=== PATIENT | male | born 1980 | race Caucasian/White ===

== ENCOUNTER 2016-09-07 16:21 | Emergency (ER) | payer OTHER ==
[2016-09-07 17:10] LABS: Hematocrit 44.7 % (42.0-52.0); Hemoglobin 14.9 gm/dL (13.5-18.0); Mean Cell Volume 88.9 fl (78-100); Mean Corpuscular Hemoglobin 29.6 pg (27-31); Mean Corpuscular Hgb Conc 33.3 g/dl (32-36); Neutrophil # 6.1 K/mm3 (1.3-6.0); Neutrophil % 65.2 % (42-75.0); Platelet Count 363 K/mm3 (150-450); Red Blood Count 5.03 M/mm3 (4.7-6.0); Red Cell Distribution Width 13.6 % (11.5-14.0); White Blood Count 9.3 K/mm3 (4.0-10.5)
[2016-09-07 17:29] LABS: ALT 40 U/L (19-67); AST 25 U/L (0-48); Albumin * 3.9 gm/dl (3.4-5.0); Alkaline Phosphatase * 120 U/L (50-170); Anion Gap 14.8 mmol/L (6.8-13.8); BUN/Creatinine Ratio 9.3 (9.0-21.6); Bilirubin, Total 0.3 mg/dL (0.0-1.1); Blood Urea Nitrogen 10 mg/dL (6-23); Ca. Corrected For Albumin 9.3 mg/dL (8.4-10.2); Calcium * 9.5 mg/dL (7.9-10.9); Carbon Dioxide 26.2 mmol/L (24-32.6); Chloride 106 mmol/L (97-106); Glucose * 96 mg/dL (70-110); Sodium 143 mmol/L (132-142); TSH * 0.207 uIU/mL (0.358-3.74); Total Protein 7.8 gm/dL (6.2-8.2)
--- NOTE | 2016-09-07 17:52 | ERNOTE ---
<Joey Craigen - Last Filed: 09/07/16 20:00> Psychological HPI - Date Date of Service: 09/07/16 - General Chief Complaint: Psychiatric Problem Source: patient Exam Limitations: no limitations - Immun/Allergies/Home Medications Allergies/Adverse Reactions: Allergies codeine Allergy (Mild, Verified 09/07/16 16:50) Swelling of Throat trazodone Adverse Reaction (Mild, Verified 09/07/16 16:50) RESTLESS LEG SYNDROME Home Medications: HOME MEDICATIONS Levothyroxine Sodium [Tirosint] 88 mcg PO DAILY 02/23/16 [Last Taken Unknown] LORazepam [Ativan] 0.5 mg PO BID PRN 03/30/16 [Last Taken Unknown] Venlafaxine HCl [Effexor] 75 mg PO DAILY 03/30/16 [Last Taken Unknown] - History of Present Illness Time Seen by Provider: 09/07/16 17:10 Arrived by: police Onset/duration: constant Mechanism: other - substance abuse Situational Problems: other - life in general Associated Symptoms: frustrated Review of Systems - Review of Systems Constitutional: Present: See HPI EYE: Present: no symptoms reported ENT: Present: no symptoms reported Respiratory: Present: no symptoms reported Cardiology: Present: no symptoms reported Gastrointestinal/Abdominal: Present: no symptoms reported Genitourinary: Present: no symptoms reported Musculoskeletal: Present: no symptoms reported Skin: Present: no symptoms reported Neurological: Present: no symptoms reported Endocrine: Present: no symptoms reported Hematologic/Lymphatic: Present: no symptoms reported Psych: Present: emotional problems - Patient's Past Medical History Patient History - Medical: ADHD, Anxiety, Depression, GERD, Hypothyroidism Patient History - Cardiac/Respiratory: No pertinent hx Patient History - Cancer: No Hx of Cancer Patient History - Surgical Procedures: Other - Social History Living Situations: home Smoking Status: Current every day smoker Alcohol Use: other Drug Use: none Physical Exam - Physical Exam General Appearance: Present: wd/wn, alert, no apparent distress Eye Exam: Normal inspection: bilateral, PERRL: bilateral Ears, Nose, Throat: Present: normal ENT inspection, hearing grossly normal, normal pharynx Neck: Present: normal inspection, nontender Respiratory: Present: no respiratory distress, normal breath sounds, no accessory muscle use, chest nontender, lungs clear Cardiovascular/Chest: Present: regular rate, rhythm, no murmur, normal peripheral pulses Gastrointestinal/Abdominal: Present: normal bowel sounds, nontender, nondistended, soft, no organomegaly Rectal Exam: Present: deferred Back Exam: Present: normal inspection, normal range of motion Extremity Exam: Present: normal inspection, non-tender, no edema, normal range of motion Neurological Exam: Present: alert, oriented, other - Pt is agitated, as he does not think he has a problem and does not want to be here. Skin Exam: Present: normal color, warm/dry Lymphatic Exam: Present: no adenopathy ED Progress - Results and Orders Patient's Lab Results:: I have reviewed the patient's lab results. - Vital Signs Patient's Vital Signs:: I have reviewed the patient's vital signs. Vital Signs: Vital Signs 09/07/16 16:48 Temperature 35.9 C L Pulse Rate 111 H Respiratory 14 Rate Blood Pressure 133/83 O2 Sat by Pulse 95 Oximetry - Progress/Reassessment Chief Complaint: Psychiatric Problem Progress:: Unchanged Progress Note-Subjective: 09/07/16 19:15 I have read the document that the presented to the court and the patient would likely benefit from being admitted for a period of time. He will need to be evaluated by a psychiatrist and he needs time to get the meds out of his system. - Transfer of Care Physician Sign Out: Ander Craig Receiving Physician: Salinas Reed Plan - Plan Plan: Attempts are underway to find a facility for placement. Departure Clinical Impression: Substance abuse, Outbursts of anger - Departure <Salinas Reed - Last Filed: 09/08/16 07:20> ED Progress - Vital Signs Vital Signs: Vital Signs 09/08/16 07:02 Temperature 35.6 C L Pulse Rate 96 Respiratory 12 Rate Blood Pressure 143/92 O2 Sat by Pulse 98 Oximetry - Progress/Reassessment Progress Note-Subjective: 09/08/16 07:08 Checked on patient periodically throughout the night and he was sleeping comfortably. Awoke around 07:00 and was alert and oriented. I notified him that we were trying to find him placement. Pt asked for more medication for his anxiety. - Transfer of Care Physician Sign Out: Salinas Reed Receiving Physician: Ander Craig
[2016-09-07 17:55] LABS: Urine Bilirubin Negative (NEGATIVE); Urine Blood Negative /ul (NEGATIVE); Urine Ketone Negative (NEGATIVE); Urine Nitrite Negative (NEGATIVE); Urine Protein Negative (NEGATIVE); Urine Specific Gravity 1.015 SP.GR. (1.005-1.030); Urine Urobilinogen Normal (NORMAL)
[2016-09-07 18:08] LABS: Urine Appearance Clear; Urine Bacteria None Seen; Urine Color Yellow; Urine RBC None Seen /hpf (0-5); Urine WBC None Seen /hpf (0-5)
[2016-09-07 18:16] LABS: Cocaine Ur Negative (NEGATIVE); Urine Barbiturate Negative (NEGATIVE); Urine Opiates Negative (NEGATIVE); Urine PCP Negative (NEGATIVE); Urine THC Negative (NEGATIVE)
[2016-09-07 18:18] LABS: Urine Benzodiazepines Positive (NEGATIVE)
[2016-09-07] MEDS ORDERED: hydrOXYzine PAMOATE 25 MG CAPSULE PO ONE (18:36)
[2016-09-07] MEDS ORDERED: hydrOXYzine PAMOATE 25 MG CAPSULE ONE (18:39)
[2016-09-08] MEDS ORDERED: hydrOXYzine PAMOATE 25 MG CAPSULE PO ONE ×3 (07:14→17:10)
[2016-09-08] MEDS ORDERED: hydrOXYzine PAMOATE 25 MG CAPSULE ONE ×3 (07:17→17:12)
[2016-09-08 12:04] VITALS: BP 145/97
[2016-09-08] MEDS ORDERED: NICOTINE 21 MG PATC TD SCH (14:00)
[2016-09-08] MEDS ORDERED: NICOTINE 21 MG PATC TD ONE (14:15)
[2016-09-08] MEDS ORDERED: VENLAFAXINE HCL 75 MG TABLET PO ONE ×2 (14:30→16:00)
[2016-09-08] MEDS ORDERED: LEVOTHYROXINE SODIUM 88 MCG TABLET PO ONE (14:30)
[2016-09-08] MEDS ORDERED: PANTOPRAZOLE SODIUM 20 MG TABLET.DR PO ONE (15:42)
[2016-09-08] MEDS ORDERED: PANTOPRAZOLE SODIUM 20 MG TABLET.DR ONE (15:44)
[2016-09-08] MEDS ORDERED: HYDROXYZINE HCL 25 MG PO SCH (17:00)
[2016-09-08] MEDS ORDERED: diphenhydrAMINE HCL 50 MG CAPSULE PO ONE ×2 (19:34→21:20)
[2016-09-08] MEDS ORDERED: VENLAFAXINE 150 MG PO SCH (21:00)
[2016-09-08] MEDS ORDERED: VENLAFAXINE HCL 37.5 MG CAP.SR.24H PO SCH (21:15)
[2016-09-08] MEDS ORDERED: ACETAMINOPHEN 500 MG TABLET PO ONE (23:04)
[2016-09-09] MEDS ORDERED: LEVOTHYROXINE SODIUM 88 MCG TABLET PO SCH (07:00)
[2016-09-09] MEDS ORDERED: ACETAMINOPHEN 500 MG TABLET PO ONE (07:03)
[2016-09-09] MEDS: hydrOXYzine HCL 25 MG TABLET PO SCH ×2 (08:27→08:28)
[2016-09-09] MEDS ORDERED: ADDERALL 30 MG PO SCH (09:00)
[2016-09-09] MEDS ORDERED: VENLAFAXINE HCL 75 MG TABLET PO SCH (09:00)
[2016-09-09] MEDS ORDERED: IBUPROFEN 400 MG TABLET ONE (09:31)
[2016-09-09] MEDS ORDERED: IBUPROFEN 400 MG TABLET PO ONE (09:31)
== END 2016-09-09 10:00 | disposition home or self-care (01) ==
LOC: ER 16:21
DX: F19.10 Other psychoactive substance abuse, uncomplicated (principal); R45.4 Irritability and anger; F17.210 Nicotine dependence, cigarettes, uncomplicated; F41.1 Generalized anxiety disorder; E03.9 Hypothyroidism, unspecified; F90.9 Attention-deficit hyperactivity disorder, unspecified type
CPT/HCPCS: 36415; 80053; 81001; 83735; 84443; 85025; 99283; G0479; G0480; G0481

== ENCOUNTER 2016-09-21 06:03 | Emergency (ER) | payer OTHER ==
[2016-09-21] MEDS ORDERED: diphenhydrAMINE HCL 50 MG/ML VIAL IV ONE (06:34)
--- NOTE | 2016-09-21 06:43 | ERNOTE ---
<Salinas Reed - Last Filed: 09/21/16 07:05> Medical Problem HPI - General Chief Complaint: General Assessment Time Seen by Provider: 09/21/16 06:23 Source: patient Exam Limitations: no limitations - Immun/Allergies/Home Medications Immunizations: IMMUNIZATION HX Immunizations Up to Date Yes History of Influenza Vaccine Yes Hx Pneumococcal Vaccination No Allergies/Adverse Reactions: Allergies codeine Allergy (Mild, Verified 09/21/16 06:09) Swelling of Throat trazodone Adverse Reaction (Mild, Verified 09/21/16 06:09) RESTLESS LEG SYNDROME Home Medications: HOME MEDICATIONS Levothyroxine Sodium [Tirosint] 88 mcg PO DAILY 02/23/16 [Last Taken Unknown] LORazepam [Ativan] 0.5 mg PO TID PRN 03/30/16 [Last Taken Unknown] Venlafaxine HCl [Effexor] 150 mg PO BID 03/30/16 [Last Taken Unknown] Dextroamphetamine/Amphetamine [Adderall 30 mg Tablet] 30 mg PO DAILY 09/08/16 [ Last Taken Unknown] Hydroxyzine HCl 25 mg PO TID 09/08/16 [Last Taken Unknown] - History of Present History Narrative: Pt called the ED late last night stating that he was having trouble with involuntary tongue movement. He was given the option to come in and be seen but he states it got some better for a while so he did not. This morning he states it is worsening again. Timing: getting worse Severity: moderate Review of Systems - Review of Systems Constitutional: Absent: recent illness EYE: Absent: vision changes ENT: Present: See HPI. Absent: throat swelling Respiratory: Absent: shortness of breath Cardiology: Present: palpitations. Absent: chest pain Gastrointestinal/Abdominal: Present: no symptoms reported Genitourinary: Present: no symptoms reported Musculoskeletal: Present: muscle pain - left shoulder Skin: Present: no symptoms reported Neurological: Present: other - "pinched nerve in his left arm" Endocrine: Present: increased thirst Hematologic/Lymphatic: Present: no symptoms reported Psych: Present: anxiety - Patient's Past Medical History Patient History - Medical: ADHD, Anxiety, Depression, GERD, Hypothyroidism Patient History - Cardiac/Respiratory: No pertinent hx Patient History - Cancer: No Hx of Cancer Patient History - Surgical Procedures: Other - Social History Living Situations: home Smoking Status: Current every day smoker Have you smoked in the past 12 months: Yes Alcohol Use: other Drug Use: none Physical Exam - Physical Exam General Appearance: Present: wd/wn, alert, moderate distress, anxious, irritable Neck: Present: normal inspection, nontender Respiratory: Present: no respiratory distress - although somewhat tachypnec Cardiovascular/Chest: Present: tachycardia Neurological Exam: Present: alert, other - hyperactive. Muscles twitching Skin Exam: Present: normal color, warm/dry ED Progress - Vital Signs Vital Signs: Vital Signs 09/21/16 06:05 Temperature 35.9 C L Pulse Rate 133 H Respiratory 18 Rate Blood Pressure 141/104 O2 Sat by Pulse 99 Oximetry - Progress/Reassessment Chief Complaint: General Assessment - Transfer of Care Physician Sign Out: Salinas Reed Receiving Physician: Ander Tirado Pending Results: Labs Expected Disposition: Discharge Departure - Departure Clinical Impression: Adverse drug reaction Disposition: [facility] Condition: Fair <Ander Tirado - Last Filed: 09/21/16 09:05> Medical Problem HPI - Immun/Allergies/Home Medications Immunizations: IMMUNIZATION HX Immunizations Up to Date Yes History of Influenza Vaccine Yes Hx Pneumococcal Vaccination No ED Progress - Vital Signs Vital Signs: Vital Signs 09/21/16 09/21/16 06:05 07:45 Temperature 35.9 C L Pulse Rate 133 H 131 H Respiratory 18 22 H Rate Blood Pressure 141/104 145/96 O2 Sat by Pulse 99 95 Oximetry Plan - Plan Plan: Patient seen. Labs ordered by Dr Reed reviewed. I added additional labs. Etiology of Sx unclear. Elevated lactic acid, elevated WBC. Possible early sepsis, vs serotonin syndrome vs other. I discussed the case with Dr Kwadwo Houser who will admit the patient. Sepsis fluids and IV Abx given. Strep, CXR and Influenxa added on. Admit for further evaluation and management. Sepsis fluids given. Departure - Critical Care Total Time (mins): 0
[2016-09-21] MEDS ORDERED: diphenhydrAMINE HCL 50 MG/ML VIAL ONE (06:44)
[2016-09-21 06:46] LABS: Hematocrit 43.9 % (42.0-52.0); Hemoglobin 15.2 gm/dL (13.5-18.0); Mean Cell Volume 86.1 fl (78-100); Mean Corpuscular Hemoglobin 29.8 pg (27-31); Mean Corpuscular Hgb Conc 34.6 g/dl (32-36); Mean Platelet Volume 9.9 fl (6.0-9.5); Platelet Count 424 K/mm3 (150-450); Red Cell Distribution Width 12.8 % (11.5-14.0); White Blood Count 22.2 K/mm3 (4.0-10.5)
[2016-09-21 06:54] LABS: Total Cells Counted 100
[2016-09-21 07:13] LABS: Atypical (Reactive) Lymph 1 % (0-2); Band 3 % (0-2.0); Basophil 1 % (0-1); Dohle Bodies 1+; Lymphocyte 19 % (20-51); Monocyte 3 % (0-9); Neutrophil 73 % (42-75); Neutrophil # 16.2 K/mm3 (1.3-6.0); Platelet Estimate Normal (NORMAL); Toxic Granulation Trace
[2016-09-21 07:35] LABS: Albumin * 4.7 gm/dl (3.4-5.0); Anion Gap 24.3 mmol/L (6.8-13.8); BUN/Creatinine Ratio 7.8 (9.0-21.6); Bilirubin, Total 1.3 mg/dL (0.0-1.1); Ca. Corrected For Albumin 8.8 mg/dL (8.4-10.2); Calcium * 9.7 mg/dL (7.9-10.9); Carbon Dioxide 18.2 mmol/L (24-32.6); Potassium 3.5 mmol/L (3.4-4.6); Total Protein 8.8 gm/dL (6.2-8.2)
[2016-09-21 07:36] LABS: Magnesium 1.6 mg/dL (1.2-2.8)
[2016-09-21 07:41] LABS: Urine Bilirubin Negative (NEGATIVE); Urine Blood Negative /ul (NEGATIVE); Urine Ketone 5 mg/dL (NEGATIVE); Urine Nitrite Negative (NEGATIVE); Urine Protein 30 mg/dL (NEGATIVE); Urine Urobilinogen Normal (NORMAL)
[2016-09-21 07:45] LABS: CK Total * 156 U/L (0-259); T4 Free * 1.38 ng/dL (0.76-1.46)
[2016-09-21] MEDS ORDERED: LORazepam 2 MG/ML DISP.SYRIN IV ONE ×2 (07:49→09:09)
[2016-09-21] MEDS ORDERED: NORMAL SALINE 1,000 ML IV PRN ×2 (07:50→10:30)
[2016-09-21 07:54] LABS: Urine Appearance Clear; Urine Bacteria TRACE; Urine Color Dark Yellow; Urine Hyaline Cast >25 /LPF; Urine Mucus Few - 1+; Urine RBC TRACE /hpf (0-5); Urine WBC 0-5 /hpf (0-5)
[2016-09-21 07:55] LABS: Cocaine Ur Negative (NEGATIVE); Urine Barbiturate Negative (NEGATIVE); Urine Benzodiazepines Negative (NEGATIVE); Urine Opiates Negative (NEGATIVE); Urine PCP Negative (NEGATIVE); Urine THC Negative (NEGATIVE)
[2016-09-21] MEDS ORDERED: NORMAL SALINE 1,000 ML IV SCH (08:30)
[2016-09-21] MEDS ORDERED: LEVOFLOXACIN/D5W 750 MG in Premix Bag 1 BAG IV ONE (08:30)
[2016-09-21 08:52] VITALS: BP 148/73
[2016-09-21] MEDS ORDERED: LORazepam 2 MG/ML DISP.SYRIN ONE (09:10)
[2016-09-21] MEDS ORDERED: LORazepam 0.5 MG TABLET PO SCH (09:21)
[2016-09-21] MEDS ORDERED: NORMAL SALINE 1,000 ML IV ONE (09:25)
[2016-09-21] MEDS ORDERED: ACETAMINOPHEN 325 MG TABLET PO PRN (09:27)
[2016-09-21] MEDS ORDERED: hydrOXYzine HCL 25 MG TABLET PO SCH (09:30)
[2016-09-21] MEDS ORDERED: LEVOTHYROXINE SODIUM 88 MCG TABLET PO SCH (10:00)
[2016-09-22] MEDS ORDERED: LEVOFLOXACIN/D5W 750 MG/150 ML BAG IV SCH (09:00)
[2016-09-23 04:17] LABS: 18KD (IGG) Band NON-REACTIVE; 23KD (IGG) Band NON-REACTIVE; 28KD (IgG) Band NON-REACTIVE; 30KD (IgG) Band NON-REACTIVE; 39KD (IgG) Band NON-REACTIVE; 39KD (IgM) Band NON-REACTIVE; 41KD (IgG) Band NON-REACTIVE; 45KD (IgG) Band NON-REACTIVE; 58KD (IgG) Band NON-REACTIVE; 66KD (IgG) Band NON-REACTIVE; 93KD (IgG) Band NON-REACTIVE; B burgdorferi IgM WB NEGATIVE (NEGATIVE); B.burgdorferi Ab (IgG) WB NEGATIVE (NEGATIVE)
[2016-09-23 06:17] LABS: 41KD (IgM) Band NON-REACTIVE
== END 2016-09-21 09:31 | disposition left against medical advice (07) ==
LOC: ER 06:03 → SCU 08:41 → UNDOADMOB 08:41 → ER 09:31
DX: T88.7XXA Unspecified adverse effect of drug or medicament, initial encounter (principal); D72.829 Elevated white blood cell count, unspecified; R74.0 Nonspecific elevation of levels of transaminase and lactic acid dehydrogenase [LDH]; F17.210 Nicotine dependence, cigarettes, uncomplicated; Z53.29 Procedure and treatment not carried out because of patient's decision for other reasons; E03.9 Hypothyroidism, unspecified
CPT/HCPCS: 36415; 71020; 80053; 81001; 82550; 83605; 83735; 84145; 84439; 84443; 85007; 85025; 86617; 87040; 87081; 87400; 87430; 96365; 96366; 96375; 99284; G0479; G0480; G0481

== ENCOUNTER 2016-09-21 13:59 | Inpatient (IN) | payer OTHER ==
[2016-09-21] MEDS ORDERED: diphenhydrAMINE HCL 50 MG/ML VIAL IV ONE (14:17)
[2016-09-21] MEDS ORDERED: diphenhydrAMINE HCL 50 MG/ML VIAL ONE (14:25)
[2016-09-21] MEDS ORDERED: LORazepam 2 MG/ML DISP.SYRIN ONE ×3 (14:30→17:01)
[2016-09-21] MEDS ORDERED: NORMAL SALINE 1,000 ML IV ONE (14:31)
[2016-09-21] MEDS ORDERED: LORazepam 2 MG/ML DISP.SYRIN IV ONE ×3 (14:31→16:53)
[2016-09-21 15:09] LABS: Hematocrit 37.7 % (42.0-52.0); Hemoglobin 12.8 gm/dL (13.5-18.0); Mean Cell Volume 87.3 fl (78-100); Mean Corpuscular Hemoglobin 29.6 pg (27-31); Mean Platelet Volume 10.1 fl (6.0-9.5); Platelet Count 346 K/mm3 (150-450); Red Blood Count 4.32 M/mm3 (4.7-6.0); White Blood Count 15.2 K/mm3 (4.0-10.5)
[2016-09-21 15:12] LABS: ALT 31 U/L (19-67); AST 15 U/L (0-48); Alkaline Phosphatase * 139 U/L (50-170); Anion Gap 14.7 mmol/L (6.8-13.8); BUN/Creatinine Ratio 8.1 (9.0-21.6); Bilirubin, Total 0.7 mg/dL (0.0-1.1); Blood Urea Nitrogen 10 mg/dL (6-23); Ca. Corrected For Albumin 9.2 mg/dL (8.4-10.2); Calcium * 9.5 mg/dL (7.9-10.9); Carbon Dioxide 24.4 mmol/L (24-32.6); Chloride 104 mmol/L (97-106); Glucose * 100 mg/dL (70-110); Lipase 53 U/L (73-393); Potassium 4.1 mmol/L (3.4-4.6); Salicylate 3.2 mg/dL (2.8-20.0); Sodium 139 mmol/L (132-142); Total Protein 7.7 gm/dL (6.2-8.2)
[2016-09-21 15:15] LABS: Total Cells Counted 100
[2016-09-21 15:40] LABS: Eosinophil 1 % (0-3); Immature Granulocyte 2 (0-1); Lymphocyte 17 % (20-51); Monocyte 11 % (0-9); Neutrophil 69 % (42-75); Neutrophil # 10.5 K/mm3 (1.3-6.0); Platelet Estimate Normal (NORMAL)
[2016-09-21] MEDS ORDERED: LEVOFLOXACIN/D5W 750 MG in Premix Bag 1 BAG IV ONE (15:45)
--- NOTE | 2016-09-21 15:56 | ERNOTE ---
Medical Problem HPI - General Chief Complaint: General Assessment Time Seen by Provider: 09/21/16 14:25 Source: family Exam Limitations: clinical condition - Immun/Allergies/Home Medications Immunizations: IMMUNIZATION HX Immunizations Up to Date Yes History of Influenza Vaccine Yes Hx Pneumococcal Vaccination No Allergies/Adverse Reactions: Allergies codeine Allergy (Mild, Verified 09/21/16 06:09) Swelling of Throat trazodone Adverse Reaction (Mild, Verified 09/21/16 06:09) RESTLESS LEG SYNDROME Home Medications: HOME MEDICATIONS Levothyroxine Sodium [Tirosint] 88 mcg PO DAILY 02/23/16 [Last Taken Unknown] LORazepam [Ativan] 0.5 mg PO TID PRN 03/30/16 [Last Taken Unknown] Venlafaxine HCl [Effexor] 150 mg PO BID 03/30/16 [Last Taken Unknown] Dextroamphetamine/Amphetamine [Adderall 30 mg Tablet] 30 mg PO DAILY 09/08/16 [ Last Taken Unknown] Hydroxyzine HCl 25 mg PO TID 09/08/16 [Last Taken Unknown] - History of Present History Narrative: Patient was here earlier with dystonic-type reaction and found to have elevated lactic acid and leukocytosis. He left AMA undestanding risks of and or disability against my advice. Return by ambulance with other family. Earlier he and family denied heavy alcohol intake, no SI or HI. Family with him now say he has been drinking heavily up iuntil 2 weeks ago which make withdrawal very possible. No fever. He is picking at things and confused. He cannot provide any Hx. no clear OD attempt. Earlier was not suicidal or homicidal. History otherwise unobtainable. Timing: getting worse Modifying Factors - (Improves): Present: other - unable Modifying Factors - (Worsens): Present: other - unable Review of Systems - Narrative Narrative: unable to obtain ROS d/t patient confusion - Review of Systems All Other Systems: All systems neg except as marked - Patient's Past Medical History Patient History - Medical: ADHD, Anxiety, Depression, GERD, Hypothyroidism Patient History - Cardiac/Respiratory: No pertinent hx Patient History - Cancer: No Hx of Cancer Patient History - Surgical Procedures: Other - Social History Living Situations: home Smoking Status: Current every day smoker Alcohol Use: other Drug Use: none Physical Exam - Physical Exam General Appearance: Present: other - Confused, picking at things, jerky, no Sz activity. Eye Exam: PERRL: bilateral Ears, Nose, Throat: Present: normal ENT inspection, other - no mass seen posterior oropharynx. Neck: Present: other - supple, no meningeal signs noted. Respiratory: Present: no respiratory distress, normal breath sounds Cardiovascular/Chest: Present: tachycardia, other - regular Gastrointestinal/Abdominal: Present: normal bowel sounds, nontender, nondistended, other - difficult exam, no rigidity Back Exam: Present: normal inspection Extremity Exam: Present: other - no gross deformity Neurological Exam: Present: other - confused. Picking at things. No acute focal motor deficits. No clear acute CN deficits. Skin Exam: Absent: skin rash ED Progress - Results and Orders Patient's Lab Results:: I have reviewed the patient's lab results. - Vital Signs Patient's Vital Signs:: I have reviewed the patient's vital signs. Vital Signs: Vital Signs 09/21/16 09/21/16 09/21/16 08:51 14:06 14:10 Temperature 37 C Pulse Rate 134 H 126 H Respiratory 22 H 22 H Rate Blood Pressure 148/73 146/77 146/77 O2 Sat by Pulse 97 97 Oximetry - EKG EKG: other - Sinus tach, rate 123, Non-specif ST/T wave changes, no evidence of STEMI - CT/Ultrasound CT/Ultrasound Narrative: CT head negative for acute. - Progress/Reassessment Chief Complaint: General Assessment Progress:: Improved Progress Note-Subjective: 09/21/16 15:54 Improved with Ativan. Still with confusion and picking but less agitation. Airway intact. D/W Dr Oneal, will admit SCU. Immediate transfer to [facility]. Possible alcohol withdrawal vs other, inpatient management indicated. 09/21/16 15:56 - Transfer of Care Expected Disposition: Admit Departure - Departure Clinical Impression: Mental status change Disposition: [facility] Condition: Undetermined - Critical Care Total Time (mins): 0
[2016-09-21 16:04] LABS: Urine Bilirubin Negative (NEGATIVE); Urine Blood Negative /ul (NEGATIVE); Urine Ketone Negative (NEGATIVE); Urine Nitrite Negative (NEGATIVE); Urine Protein Negative (NEGATIVE); Urine Urobilinogen Normal (NORMAL)
[2016-09-21 16:11] LABS: Urine Appearance Clear; Urine Bacteria None Seen; Urine Color Yellow; Urine RBC None Seen /hpf (0-5); Urine WBC None Seen /hpf (0-5)
[2016-09-21 16:20] LABS: Cocaine Ur Negative (NEGATIVE); Urine Barbiturate Negative (NEGATIVE); Urine Benzodiazepines Negative (NEGATIVE); Urine Opiates Negative (NEGATIVE); Urine PCP Negative (NEGATIVE); Urine THC Negative (NEGATIVE)
[2016-09-21] MEDS ORDERED: POTASSIUM CHLORIDE 40 MEQ in NORMAL SALINE 1,000 ML IV PRN (16:43)
[2016-09-21] MEDS ORDERED: THIAMINE HCL 100 MG/ML VIAL IV STA ×2 (16:45→17:00)
[2016-09-21] MEDS ORDERED: LORazepam 2 MG/ML DISP.SYRIN IV PRN (16:45)
[2016-09-21] MEDS ORDERED: MULTIVIT INFUSN,ADULT 4,VIT K 10 ML, THIAMINE HCL 100 MG in NORMAL SALINE 1,000 ML IV ONE (16:53)
[2016-09-21] MEDS ORDERED: FOLIC ACID 1 MG TABLET PO STA (16:53)
--- NOTE | 2016-09-21 16:54 | HP ---
Chief Complaint - Chief Complaint Date of Service: 09/21/16 Time of Service: 19:40 Chief Complaint: Altered mental status History of Present Illness: This 35 year old man presented to the [facility] ER this morning. At that time, he appeared to be having a dystonic-type reaction and was also found to have elevated lactic acid and leukocytosis of unknown origin. The plan then was for admission, with pending cultures and IV antibiotics, but instead he became aggitated and left AMA undestanding risks of and or disability against the advice of the [facility] ER doctor. He returned to the [facility] ER by ambulance this afternoon. Different family members came to the [facility] ER than were here this morning. Earlier he and his family denied him having had any heavy alcohol intake. The family with him now say he has been drinking heavily up iuntil 2 weeks ago, which make withdrawal very possible. There has been no fever, either at home or in the ER either time today. He was picking at things and confused in the ER this afternoon. He cannot provide any history himself due to his current clinical situation. There was no clear OD attempt. Earlier today also he was not suicidal or homicidal. History this afternoon was obtained from EMS and family. Earlier today cultures were obtained and he had been started on Levaquin IV. CXR and Urinalysis were unremarkable. This afternoon his wbc count has improved, and his lactic acid level has normalized. He has seen Kathleen Reynoso in the [facility] psych department, but was dismissed from that practice. She had provided previous diagnoses of borderline personality disorder, depressive disorder and alcohol abuse. - Patient's Past Medical History Patient History - Medical: ADHD, Anxiety, Depression, GERD, Hypothyroidism, Other - alcohol abuse, borderline personality disorder, adjustment reaction. Patient History - Cardiac/Respiratory: No pertinent hx Patient History - Cancer: No Hx of Cancer Patient History - Surgical Procedures: Other - Family History Father Family History - Medical: Alcohol Abuse, Other - gout Family History - Cardiac/Respiratory: Hypertension, Hyperlipidemia Mother Family History - Cardiac/Respiratory: Hyperlipidemia Grandfather-Maternal Family History - Medical: , Depression, Other - suicide at a young age Grandmother-Paternal Family History - Medical: Alcohol Abuse, Other - suicide attempt - Social History Living Situations: home Smoking Status: Current every day smoker Alcohol Use: heavy Drug Use: none Review Of Systems (GEN) - Review of Systems Generalized/Overall Review: Present: No Symptoms Reported - unable to provide, confused and reaching for invisible items. Allergies/Adverse Reactions: Allergies Allergy/AdvReac Type Severity Reaction Status Date / Time codeine Allergy Mild Swelling Verified 09/21/16 06:09 of Throat trazodone AdvReac Mild RESTLESS Verified 09/21/16 06:09 LEG SYNDROME Home Medications: HOME MEDICATIONS Levothyroxine Sodium [Tirosint] 88 mcg PO DAILY 02/23/16 [Last Taken Unknown] LORazepam [Ativan] 0.5 mg PO TID PRN 03/30/16 [Last Taken Unknown] Venlafaxine HCl [Effexor] 150 mg PO BID 03/30/16 [Last Taken Unknown] Dextroamphetamine/Amphetamine [Adderall 30 mg Tablet] 30 mg PO DAILY 09/08/16 [ Last Taken Unknown] RX: Hydroxyzine HCl 25 mg PO TID 09/08/16 [Last Taken Unknown] Exam - Exam Vital Signs: Vital Signs - Last Taken Selected Entries 09/21/16 18:40 Temperature 37.2 C Temperature Axillary Source Pulse Rate 143 H Respiratory 26 H Rate Respiratory Normal Depth Respiratory Normal Effort O2 Sat by Pulse 100 Oximetry Oxygen Delivery Nasal Cannula Method Oxygen Flow 2 Rate Constitutional: Present: Well developed, Well nourished, Lethargic ENT Exam: Present: normal ENT inspection Eye Exam: bilateral eye: normal inspection, PERRL, EOMI Neck: Present: supple Back Exam: Present: normal inspection Respiratory: Present: lungs clear, no respiratory distress Cardiovascular/Chest: Present: regular rate, rhythm, no murmur Abdomen: Present: Normal bowel sounds, soft, nontender, nondistended, no rebound tenderness, no hepatospenomegaly, no masses Extremity: Present: normal inspection, no pedal edema Skin Exam: Present: normal color, warm/dry, no cyanosis Neurologic: Present: disoriented x 3 Appearance: Present: neat Diagnostic Studies: Laboratory Results WBC 15.2 K/mm3 (4.0-10.5) H D 09/21/16 14:53 RBC 4.32 M/mm3 (4.7-6.0) L 09/21/16 14:53 Hgb 12.8 gm/dL (13.5-18.0) L 09/21/16 14:53 Hct 37.7 % (42.0-52.0) L 09/21/16 14:53 MCV 87.3 fl (78-100) 09/21/16 14:53 MCH 29.6 pg (27-31) 09/21/16 14:53 MCHC 34.0 g/dl (32-36) 09/21/16 14:53 RDW 13.0 % (11.5-14.0) 09/21/16 14:53 Plt Count 346 K/mm3 (150-450) 09/21/16 14:53 MPV 10.1 fl (6.0-9.5) H 09/21/16 14:53 Neutrophils % (Manual) 69 % (42-75) 09/21/16 14:53 Lymphocytes % (Manual) 17 % (20-51) L 09/21/16 14:53 Monocytes % (Manual) 11 % (0-9) H 09/21/16 14:53 Eosinophils % (Manual) 1 % (0-3) 09/21/16 14:53 Immature Granulocytes 2 (0-1) H 09/21/16 14:53 Neutrophils # (Manual) 10.5 K/mm3 (1.3-6.0) H 09/21/16 14:53 Lymphocytes # (Manual) 2.6 k/mm3 (1.5-3.5) 09/21/16 14:53 Monocytes # (Manual) 1.7 k/mm3 (0.0-1.0) H 09/21/16 14:53 Eosinophils # (Manual) 0.2 k/mm3 (0.0-0.7) 09/21/16 14:53 Platelet Estimate Normal (NORMAL) 09/21/16 14:53 RBC Morphology (NORMAL) 09/21/16 14:53 Sodium 139 mmol/L (132-142) 09/21/16 14:53 Plasma Sodium 139 mmol/L (130-142) 09/21/16 14:53 Potassium 4.1 mmol/L (3.4-4.6) 09/21/16 14:53 Chloride 104 mmol/L (97-106) 09/21/16 14:53 Carbon Dioxide 24.4 mmol/L (24-32.6) 09/21/16 14:53 Anion Gap 14.7 mmol/L (6.8-13.8) H 09/21/16 14:53 BUN 10 mg/dL (6-23) 09/21/16 14:53 Creatinine 1.24 mg/dL (0.4-1.4) 09/21/16 14:53 Est GFR (Non-Af Amer) 70 mL/min (60-130) D 09/21/16 14:53 BUN/Creatinine Ratio 8.1 (9.0-21.6) L 09/21/16 14:53 Random Glucose 100 mg/dL (70-110) D 09/21/16 14:53 Lactic Acid, Venous 1.6 mmol/L (0.4-2.0) 09/21/16 14:53 Calcium 9.5 mg/dL (7.9-10.9) 09/21/16 14:53 Calcium Adj for Albumin 9.2 mg/dL (8.4-10.2) 09/21/16 14:53 Total Bilirubin 0.7 mg/dL (0.0-1.1) 09/21/16 14:53 AST 15 U/L (0-48) 09/21/16 14:53 ALT 31 U/L (19-67) 09/21/16 14:53 Alkaline Phosphatase 139 U/L (50-170) 09/21/16 14:53 Total Protein 7.7 gm/dL (6.2-8.2) 09/21/16 14:53 Albumin 4.0 gm/dl (3.4-5.0) 09/21/16 14:53 Lipase 53 U/L (73-393) L 09/21/16 14:53 Urine Color Yellow 09/21/16 15:35 Urine Appearance Clear 09/21/16 15:35 Urine pH 6.0 pH (5.0-7.0) 09/21/16 15:35 Ur Specific [place] 1.010 SP.GR. (1.005-1.030) 09/21/16 15:35 Urine Protein Negative mg/dL (NEGATIVE) 09/21/16 15:35 Urine Glucose (UA) Negative mg/dL (NEGATIVE) 09/21/16 15:35 Urine Ketones Negative mg/dL (NEGATIVE) 09/21/16 15:35 Urine Blood Negative /ul (NEGATIVE) 09/21/16 15:35 Urine Nitrate Negative (NEGATIVE) 09/21/16 15:35 Urine Bilirubin Negative mg/dl (NEGATIVE) 09/21/16 15:35 Urine Urobilinogen Normal EU/dl (NORMAL) 09/21/16 15:35 Ur Leukocyte Esterase Negative /ul (NEGATIVE) 09/21/16 15:35 Urine RBC None seen /hpf (0-5) 09/21/16 15:35 Urine WBC None seen /hpf (0-5) 09/21/16 15:35 Ur Epithelial Cells None seen /hpf (0-5) 09/21/16 15:35 Urine Bacteria None seen (NONE) 09/21/16 15:35 Urine Culture Comments Note 09/21/16 15:35 Salicylates 3.2 mg/dL (2.8-20.0) 09/21/16 14:53 Urine Opiates Screen Negative (NEGATIVE) 09/21/16 15:35 Acetaminophen Less than 0.2 mcg/mL (10.0-30.0) L 09/21/16 14:53 Barbiturate Screen Negative (NEGATIVE) 09/21/16 15:35 Ur Phencyclidine Scrn Negative (NEGATIVE) 09/21/16 15:35 Urine Amphetamine Positive (NEGATIVE) H 09/21/16 15:35 U Benzodiazepines Scrn Negative (NEGATIVE) 09/21/16 15:35 Urine Cocaine Screen Negative (NEGATIVE) 09/21/16 15:35 Urine Marijuana (THC) Negative (NEGATIVE) 09/21/16 15:35 Ethyl Alcohol Less than 3.0 mg/dL (0.0-10.0) 09/21/16 14:53 Assessment/Plan - Narrative Narrative: Fluids, antibiotics, await cultures. Alcohol detox protocol. Psych consult. Follow labs. Estimate 3 day stay. Primary treatment supportive, plus as needed benzodiazepines and if necessary, major tranquilizers. Psych consult with Dr. Henry tomorrow. Flu vaccine. - Assessment/Plan (1) Alcohol abuse Problem: Acute (2) Lactic acidosis Problem: Resolved (3) Leukocytosis Problem: Acute Qualifiers: Leukocytosis type: unspecified Qualified Code(s): D72.829 - Elevated white blood cell count, unspecified (4) Mental status change Problem: Acute Qualifiers: Altered mental status type: delirium Qualified Code(s): R41.0 - Disorientation, unspecified (5) Adverse drug reaction Assessment: Prolonged amphetamine toxicity (tweaking?)?, alcohol withdrawal?, bath salts?, other drugs? combination drugs? Problem: Acute
[2016-09-21] MEDS: ENOXAPARIN SODIUM 40 MG/0.4 ML SYRG SC SCH (18:37)
[2016-09-21] MEDS: NICOTINE 21 MG PATC TD SCH (18:37)
[2016-09-21] MEDS: LORazepam 2 MG/ML DISP.SYRIN IV PRN ×4 (18:44→23:14)
[2016-09-21] MEDS ORDERED: FOLIC ACID 5 MG/ML VIAL IV SCH (20:00)
[2016-09-21] MEDS: POTASSIUM CHLORIDE 40 MEQ in NORMAL SALINE 1,000 ML IV SCH (20:38)
[2016-09-21] MEDS: NORMAL SALINE IV SCH (21:01)
[2016-09-21] MEDS: FOLIC ACID IV SCH (21:01)
[2016-09-22] MEDS: LORazepam 2 MG/ML DISP.SYRIN IV PRN ×8 (00:53→23:32)
[2016-09-22] MEDS ORDERED: HALOPERIDOL LACTATE 5 MG/ML VIAL IM ONE (04:04)
[2016-09-22] MEDS ORDERED: HALOPERIDOL LACTATE 5 MG/ML VIAL ONE (04:05)
[2016-09-22] MEDS: POTASSIUM CHLORIDE 40 MEQ in NORMAL SALINE 1,000 ML IV SCH ×2 (04:27→11:23)
[2016-09-22 05:44] LABS: Hematocrit 38.1 % (42.0-52.0); Hemoglobin 12.7 gm/dL (13.5-18.0); Mean Cell Volume 88.2 fl (78-100); Mean Corpuscular Hemoglobin 29.4 pg (27-31); Mean Corpuscular Hgb Conc 33.3 g/dl (32-36); Neutrophil # 9.3 K/mm3 (1.3-6.0); Neutrophil % 68.8 % (42-75.0); Platelet Count 323 K/mm3 (150-450); Red Blood Count 4.32 M/mm3 (4.7-6.0); Red Cell Distribution Width 13.1 % (11.5-14.0); White Blood Count 13.6 K/mm3 (4.0-10.5)
[2016-09-22 05:59] LABS: Albumin * 3.7 gm/dl (3.4-5.0); Anion Gap 15.2 mmol/L (6.8-13.8); BUN/Creatinine Ratio 9.9 (9.0-21.6); Bilirubin Direct 0.1 mg/dL (0.0-0.3); Bilirubin, Total 0.6 mg/dL (0.0-1.1); Bilirubin,Indirect 0.5 mg/dL (0.1-0.7); Calcium * 8.9 mg/dL (7.9-10.9); Carbon Dioxide 21.1 mmol/L (24-32.6); Estimated Creat Clear 100.3; Potassium 4.3 mmol/L (3.4-4.6); Total Protein 7.4 gm/dL (6.2-8.2)
[2016-09-22] MEDS: LEVOTHYROXINE SODIUM 88 MCG TABLET PO SCH ×2 (07:02→11:54)
[2016-09-22] MEDS: THIAMINE HCL 100 MG in NORMAL SALINE 50 ML IV SCH (08:46)
[2016-09-22] MEDS ORDERED: THIAMINE HCL 100 MG TABLET PO SCH (09:00)
[2016-09-22] MEDS ORDERED: FLU VACC QS2016-17 36MOS UP/PF 60 MCG/0.5 ML DISP.SYRIN IM ONE (09:00)
[2016-09-22] MEDS ORDERED: MULTIVITAMINS 1 CAP CAPSULE PO SCH (09:00)
[2016-09-22] MEDS: FOLIC ACID IV SCH (09:21)
[2016-09-22] MEDS: NORMAL SALINE IV SCH (09:21)
--- NOTE | 2016-09-22 10:11 | CONS ---
- Reason for consultation (2) Mental status change Date of Service: 09/22/16 Reason for Consultation:: This patient was referred to me for a Psychiatric Consultation by Michael Ross M.D., his admitting physician for evaluation and treatment of disturbing signs of dystonia and ticlike movements on top of altered mental status. HPI - History of Present Illness Allergies/Adverse Reactions: Allergies codeine Allergy (Mild, Verified 09/22/16 08:38) Swelling of Throat trazodone Adverse Reaction (Mild, Verified 09/22/16 08:38) RESTLESS LEG SYNDROME Home Medications: Home Medications Medication Instructions Recorded Last Taken Levothyroxine Sodium [Tirosint] 88 mcg PO DAILY 02/23/16 Unknown LORazepam [Ativan] 0.5 mg PO BID PRN 03/30/16 Unknown Venlafaxine HCl [Effexor] 150 mg PO BID 03/30/16 Unknown Dextroamphetamine/Amphetamine 30 mg PO BID 09/08/16 Unknown [Adderall 30 mg Tablet] Hydroxyzine HCl 50 mg PO TID PRN 09/08/16 Unknown ALPRAZolam [Xanax] 0.5 mg PO Q12H PRN 09/22/16 Unknown Lansoprazole [Prevacid] 30 mg PO DAILY 09/22/16 Unknown - Patient's Past Medical History Patient History - Medical: ADHD, Anxiety, Depression, GERD, Hypothyroidism, Other - alcohol abuse, borderline personality disorder, adjustment reaction. Patient History - Cardiac/Respiratory: No pertinent hx Patient History - Cancer: No Hx of Cancer Patient History - Surgical Procedures: Other - Family History Father Family History - Medical: Alcohol Abuse, Other - gout Family History - Cardiac/Respiratory: Hypertension, Hyperlipidemia Mother Family History - Cardiac/Respiratory: Hyperlipidemia Grandfather-Maternal Family History - Medical: , Depression, Other - suicide at a young age Grandmother-Paternal Family History - Medical: Alcohol Abuse, Other - suicide attempt Family History - Cancer: No pertinent family hx - Social History Living Situations: home Smoking Status: Current every day smoker Have you smoked in the past 12 months: Yes Alcohol Use: heavy Drug Use: none Procedures APPLICATION OF SPLINT (10/29/13) CLOSURE SKIN & SUBCUTANEOUS NEC (04/25/07) LINEAR REP LID LACER (06/20/05) OP RED-INT FIX METAC/CAR (11/01/13) REPAIR FACE SUBCUTANEOUS TISSUE AND FASCIA, OPEN APPROACH (07/18/16) REPAIR LEFT EAR SKIN, EXTERNAL APPROACH (07/18/16) REPAIR LOWER LIP, EXTERNAL APPROACH (02/21/16) Medications - Medications Current Medications: Current Medications Enoxaparin Sodium (Lovenox) 40 mg SC Q24H [facility] Stop: 10/21/16 16:46 Last Admin: 09/21/16 18:37 Dose: 40 mg Potassium Chloride 40 meq/ (Sodium Chloride) 1,020 mls @ 130 mls/hr IV .Q7H51M [facility] Stop: 10/21/16 17:01 Last Admin: 09/22/16 04:27 Dose: 130 mls/hr Thiamine HCl 100 mg/ Sodium (Chloride) 51 mls @ 100 mls/hr IV DAILY [facility] Stop: 10/22/16 09:01 Last Admin: 09/22/16 08:46 Dose: 100 mls/hr Folic Acid 0.5 mg/ Sodium (Chloride) 100.1 mls @ 200 mls/hr IV DAILY [facility] Stop: 10/21/16 20:16 Last Infusion: 09/21/16 21:32 Dose: Infused Levothyroxine Sodium (Synthroid) 88 mcg PO DAILY@0700 [facility] Stop: 10/22/16 07:01 Last Admin: 09/22/16 07:02 Dose: Not Given Lorazepam (Ativan) 2 mg IV Q1H PRN PRN Reason: Alcohol Withdrawal Stop: 10/21/16 16:46 Last Admin: 09/22/16 04:47 Dose: 2 mg Nicotine (Nicoderm) 21 mg TD Q24H [facility] Stop: 10/21/16 17:01 Last Admin: 09/21/16 18:37 Dose: 21 mg Physical Examination - Exam Vital Signs: Vital Signs - Last Taken Temp 37.6 C H 09/22/16 07:34 Pulse 115 H 09/22/16 08:52 Resp 22 H 09/22/16 08:52 BP 138/76 09/22/16 08:52 Pulse Ox 100 09/22/16 08:52 O2 Oxygen Delivery Method Room Air - Results and Findings: Narrative: At this time, Ander {10:30AM, is too soundly asleep to interview so I shall come back once he can be alert enough to be interviewed. He does not show any of the dystonia described by Dr. Ross to me yesterday. 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 Other comorbid diagnoses: 1-Bipolar affective disorder, Type II 2-Polysubstance abuse: -Benzodiazepines -Amphetamines -Methamphetamine 3-Alcohol abuse 4-Borderline personality disorder 5-Posttraumatic Stress Disorder. RECOMMENDATIONS 1-As soon as he is medically stable, he should be released under the continued care of Dr. Álvarez. I feel that it is not within the province of my professional influence to proffer any of my recommendations to him unless he solicits my opinion. He ought to request to obtain all of our psychiatric files in order for him to have a Vipassana view{bird's eye view in Worship terms} of this patient's actual profile and not just what this patient chooses for Dr. Álvarez to peek at in the heavily censored appointments that last, on average, five minutes each time , sans benefit of the 's consensual validation. Dr. Álvarez ought to be aware of the proven track record of this man as an unrepentant prevaricator and being a portable billboard for what the Id truly looks like. 2-He should NEVER be given : -Amphetamines -Benzodiazepines and -Antidepressants. 3-He should be started , as soon as possible {with Rachel having total custody of all his medications}: -Naltrexone: Starting on oral forms and transitioning to Vivitrol which is a depot form and lasts 6 weeks in his system. -Antabuse: available in yearlong lasting pellets embedded in the belly -Mood stabilizers along the lines of Lamotrigine AND Topiramate 4-An intensive course of group and couple as well as individual Dialectic Psychotherapy. Josefina Henry M.D. Lab/Microbiology results last 24 hrs: Abnormal/Pending Laboratory Last 24 HRS 09/22/16 09/22/16 05:22 05:22 WBC 13.6 H RBC 4.32 L Hgb 12.7 L Hct 38.1 L MPV 10.0 H Immature Gran # (Auto) 0.05 H Monocytes % 9.7 H Neutrophils # 9.3 H Monocytes # 1.3 H Chloride 107 H Carbon Dioxide 21.1 L Anion Gap 15.2 H - Assessments/Findings (1) Alcohol abuse Problem: Acute (2) Mental status change Problem: Acute Qualifiers: Altered mental status type: delirium Qualified Code(s): R41.0 - Disorientation, unspecified
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
[2016-09-22] MEDS: LEVOFLOXACIN/D5W 750 MG/150 ML BAG IV SCH (16:02)
[2016-09-22] MEDS: ENOXAPARIN SODIUM 40 MG/0.4 ML SYRG SC SCH (16:05)
[2016-09-22] MEDS: NICOTINE 21 MG PATC TD SCH (16:06)
[2016-09-22] MEDS: lamoTRIgine 100 MG TABLET PO SCH (16:06)
[2016-09-22] MEDS ORDERED: NALTREXONE HCL 50 MG TABLET PO SCH (21:00)
[2016-09-23] MEDS: LORazepam 2 MG/ML DISP.SYRIN IV PRN ×3 (01:35→06:04)
[2016-09-23] MEDS: IBUPROFEN 200 MG TABLET PO PRN ×2 (02:44→09:32)
[2016-09-23] MEDS ORDERED: PANTOPRAZOLE SODIUM 40 MG TABLET.EC PO SCH (07:00)
[2016-09-23] MEDS: FOLIC ACID IV SCH (08:40)
[2016-09-23] MEDS: NORMAL SALINE IV SCH (08:40)
[2016-09-23] MEDS: LEVOTHYROXINE SODIUM 88 MCG TABLET PO SCH (08:47)
[2016-09-23] MEDS: THIAMINE HCL 100 MG in NORMAL SALINE 50 ML IV SCH (08:50)
[2016-09-23] MEDS ORDERED: TOPIRAMATE 50 MG TABLET PO SCH (09:00)
[2016-09-23] MEDS ORDERED: ACETAMINOPHEN 500 MG TABLET PO PRN (09:00)
[2016-09-23] MEDS ORDERED: hydrOXYzine HCL 25 MG TABLET PO PRN (11:54)
--- NOTE | 2016-09-23 11:54 | PN ---
Subjective - Date and Time Seen Date: 09/23/16 Time: 05:45 Subjective Narrative: Yesterday, more oriented and with it. Still using IV ativan commonly. Still with jerky motions through the night, but better. Capellan is out. Eating regular food. This morning, sleeping too soundly to converse with. Objective - Review of Systems Generalized/Overall Review: Reports: No Symptoms Reported - Vitals Vitals: Last Vital Signs Selected Entries 09/23/16 04:00 Temperature 37.0 C Temperature Temporal Artery Source Scan Pulse Rate 99 Respiratory 20 Rate Respiratory Normal Depth Blood Pressure 123/81 Blood Pressure Supine Position O2 Sat by Pulse 100 Oximetry Oxygen Delivery Room Air Method - Exam Constitutional: Present: Somnolent ENT Exam: Present: normal ENT inspection Neck: Present: normal inspection Respiratory: Present: lungs clear, no respiratory distress Cardiovascular/Chest: Present: regular rate, rhythm, no murmur Abdomen: Present: Normal bowel sounds, soft, nondistended, no hepatospenomegaly , no masses Extremity: Present: normal inspection, no pedal edema Skin Exam: Present: normal color, warm/dry, no cyanosis Cauti Physician Documentation - Urinary Catheter Management Urethral (Capellan) Date of Insertion: 09/21/16 Time of Insertion: 15:45 Date of Removal: 09/22/16 Time of Removal: 14:20 Assessment/Plan Plan Narrative: We will maintain in hospital till his akathisia improves. Will need outpatient followup with his psychiatrist. Will adjust medications. - Problems/Diagnosis (1) Alcohol abuse Problem: Chronic (2) Lactic acidosis Problem: Resolved (3) Leukocytosis Problem: Acute Qualifiers: Leukocytosis type: unspecified Qualified Code(s): D72.829 - Elevated white blood cell count, unspecified (4) Mental status change Problem: Acute Qualifiers: Altered mental status type: delirium Qualified Code(s): R41.0 - Disorientation, unspecified (5) Adverse drug reaction Problem: Acute (6) Bipolar II disorder Problem: Chronic (7) Polysubstance abuse Problem: Chronic (8) Borderline personality disorder in adult Problem: Chronic (9) PTSD (post-traumatic stress disorder) Problem: Chronic
[2016-09-23 14:14] VITALS: BP 123/68
[2016-09-23] MEDS: LEVOFLOXACIN/D5W 750 MG/150 ML BAG IV SCH (15:20)
[2016-09-23] MEDS: lamoTRIgine 100 MG TABLET PO SCH (16:09)
[2016-09-23] MEDS: NICOTINE 21 MG PATC TD SCH (16:09)
[2016-09-23] MEDS: ENOXAPARIN SODIUM 40 MG/0.4 ML SYRG SC SCH (16:10)
--- NOTE | 2016-09-23 17:30 | DS ---
(1) Alcohol abuse Problem: Chronic (2) Lactic acidosis Problem: Resolved (3) Leukocytosis Problem: Acute Qualifiers: Leukocytosis type: unspecified Qualified Code(s): D72.829 - Elevated white blood cell count, unspecified (4) Mental status change Problem: Resolved Qualifiers: Altered mental status type: delirium Qualified Code(s): R41.0 - Disorientation, unspecified (5) Adverse drug reaction Problem: Resolved (6) Bipolar II disorder Problem: Chronic (7) Polysubstance abuse Problem: Chronic (8) Borderline personality disorder in adult Problem: Chronic (9) PTSD (post-traumatic stress disorder) Problem: Chronic (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 Description of Stay: Following admission, he was treated supportively. By yesterday, he was improving. He was seen in consultation by Dr. Henry. He is being reevaluated just now by Dr. Henry. The patient and Dr. Henry have provisionally agreed to see each other on an outpatient basis. Please see Dr. Henry's consult reports for details. Procedures Performed: none Discharge Disposition: Home self care Disposition: Home self-care Condition: Undetermined Discharge Activity: Activity as tolerated Discharge Diet: General/regular food Consultation Done:: Dr. Henry, psychiatry Problem Oriented Discharge Instructions to Patient/Family: Stimulant Use Disorder-Amphetamines, Drug Toxicity, Substance Use Disorder, Bipolar Disorder Additional Patient Instructions (free text): Follow up as an outpatient with Dr. Henry, per his instructions. ABSOLUTELY NO: ALCOHOL ANTIDEPRESSANTS AMPHETAMINES OR OTHER STIMULATNT DRUGS. BENZODIAZEPINES LIKE XANAX (ALPRAZOLAM) OR ATIVAN (LORAZEPAM) Prescriptions (Any new or edited meds): Naltrexone HCl [ReVia] 50 mg PO HS #30 tablet Topiramate [Topamax] 25 mg PO DAILY #30 tablet hydrOXYzine HCL [Atarax] 50 mg PO Q4H PRN #100 tablet PRN Reason: anxiety or restlessness lamoTRIgine [Lamictal] 25 mg PO DAILY@1700 #30 tablet Complete Home Medications List: Complete Home Medication List: Levothyroxine Sodium [Tirosint] 88 mcg PO DAILY 02/23/16 Lansoprazole [Prevacid] 30 mg PO DAILY 09/22/16 Ibuprofen [Motrin] 200 mg PO Q6H PRN #0 tablet 09/23/16 Naltrexone HCl [ReVia] 50 mg PO HS #30 tablet 09/23/16 Topiramate [Topamax] 25 mg PO DAILY #30 tablet 09/23/16 hydrOXYzine HCL [Atarax] 50 mg PO Q4H PRN #100 tablet 09/23/16 lamoTRIgine [Lamictal] 25 mg PO DAILY@1700 #30 tablet 09/23/16
--- NOTE | 2016-09-23 18:12 | PN ---
Subjective - Date and Time Seen Date: 09/23/16 Time: 18:02 Subjective Narrative: I interviewed both the patient and his . We reviewed : 1-All of his diagnoses 2-The theoretical intercalation of the rubric of his total clinical presentation with extensive references to evidence-based research as to genetics, causation, and the role of the four opiate receptor sites: Mu1, Mu2, Delta and [place] which we intend to frontally target on top of attacking his bipolarity and Borderline Personality Disorder. 3-Until Mr. Gray , our Vice-President of Clinic Affairs approves my taking over his case, I share provide coverage until the decision is made , at which time, if he is disapproved , he will have to go back to Dr. Álvarez. I have discussed the whole case with Michael Ross M.D. I also warned the couple about the things to look out for in the initiation of the new medications we are instituting. Josefina Henry M.D. Objective - Vitals Vitals: Last Vital Signs Temp 35.9 C L 09/23/16 14:13 Pulse 87 09/23/16 14:13 Resp 20 09/23/16 14:13 BP 123/68 09/23/16 14:13 Pulse Ox 100 09/23/16 14:13 Cauti Physician Documentation - Urinary Catheter Management Urethral (Capellan) Date of Insertion: 09/21/16 Time of Insertion: 15:45 Date of Removal: 09/22/16 Time of Removal: 14:20 Assessment/Plan - Problems/Diagnosis (1) Alcohol abuse Problem: Chronic (2) Mental status change Problem: Resolved Qualifiers: Altered mental status type: delirium Qualified Code(s): R41.0 - Disorientation, unspecified
--- NOTE | 2016-10-10 14:00 | PN ---
Subjective - Date and Time Seen Date: 10/10/16 Time: 06:50 Subjective Narrative: Somnolent. Poor historian. Denies pain. Minimally cooperative. Objective - Review of Systems Generalized/Overall Review: Reports: No Symptoms Reported EENTM: Reports: No Symptoms Reported Respiratory: Reports: No Symptoms Reported Cardiac: Reports: No Symptoms Reported Abdominal: Reports: No Symptoms Reported Genitourinary Symptoms: Reports: No Symptoms Reported Musculoskeletal Complaints: Reports: No Symptoms Reported Neurological: Reports: No Symptoms Reported Skin: Reports: No Symptoms Reported Endocrine: Reports: No Symptoms Reported Misc: All systems neg except as marked - Vitals Vitals: Last Vital Signs Selected Entries 09/22/16 06:36 Temperature 37.6 C H Temperature Temporal Artery Source Scan Pulse Rate 119 H Pulse Rhythm Regular Pulse Strength Normal Respiratory 28 H Rate Respiratory Normal Depth Respiratory Tachypnea Pattern Blood Pressure 126/85 Blood Pressure Supine Position O2 Sat by Pulse 95 Oximetry Oxygen Delivery Room Air Method - Exam Constitutional: Present: Cooperative, Well developed, Somnolent, Obese ENT Exam: Present: normal ENT inspection, hearing grossly normal Neck: Present: non-tender, full range of motion, supple, normal inspection Respiratory: Present: lungs clear, no respiratory distress Cardiovascular/Chest: Present: regular rate, rhythm, no murmur Abdomen: Present: Normal bowel sounds, soft, nontender, nondistended, no rebound tenderness, no hepatospenomegaly, no masses, obese Extremity: Present: normal inspection. Absent: lower extremity edema Skin Exam: Present: normal color, warm/dry, no cyanosis Neurologic: Present: other Appearance: Present: appropriate appearance, neat Eye contact: Present: cooperative, decreased rate of speech Cauti Physician Documentation - Urinary Catheter Management Urethral (Capellan) Date of Insertion: 09/21/16 Time of Insertion: 15:45 Date of Removal: 09/22/16 Time of Removal: 14:20 Assessment/Plan Plan Narrative: Continue with supportive care. Psych consult. - Problems/Diagnosis (1) Alcohol abuse Problem: Chronic (2) Lactic acidosis Problem: Resolved (3) Leukocytosis Problem: Acute Qualifiers: Leukocytosis type: unspecified Qualified Code(s): D72.829 - Elevated white blood cell count, unspecified (4) Mental status change Problem: Resolved Qualifiers: Altered mental status type: delirium Qualified Code(s): R41.0 - Disorientation, unspecified (5) Adverse drug reaction Problem: Resolved (6) Bipolar II disorder Problem: Chronic (7) Polysubstance abuse Problem: Chronic (8) Borderline personality disorder in adult Problem: Chronic (9) PTSD (post-traumatic stress disorder) Problem: Chronic (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
== END 2016-09-23 18:35 | disposition home or self-care (01) | DRG 92 ==
LOC: ER 13:59 → MS 15:51 → UNDOADMIN 15:51 → MS 15:59 → SCU 18:36
PROVIDERS: ADMIT Allergy & Immunology; ATTEND Allergy & Immunology
PROC: HZ2ZZZZ Detoxification Services for Substance Abuse Treatment (ICD-10-PCS; principal; 2016-09-21)
DX: F95.2 Tourette's disorder (principal); E87.2 Acidosis; T44.995A Adverse effect of other drug primarily affecting the autonomic nervous system, initial encounter; R41.0 Disorientation, unspecified; F10.10 Alcohol abuse, uncomplicated; F60.3 Borderline personality disorder; D72.829 Elevated white blood cell count, unspecified; F19.10 Other psychoactive substance abuse, uncomplicated; F15.10 Other stimulant abuse, uncomplicated; Z23 Encounter for immunization
CPT/HCPCS: 36415; 70450; 80048; 80053; 80076; 81001; 82140; 83605; 83690; 83735; 85007; 85025; 87086; 90686; 93005; 96372; 96374; 96375; 99283; G0008; G0479; G0480; G0481

== ENCOUNTER 2017-01-19 02:33 | Emergency (ER) | payer OTHER ==
[2017-01-19] MEDS ORDERED: DIPHTH,PERTUSS(ACELL),TET VAC 0.5 ML VIAL IM ONE ×2 (03:16→03:18)
--- NOTE | 2017-01-19 03:19 | ERNOTE ---
Upper Extremity HPI - General Extremities Pain Location: thumb: left - laceration Time Seen by Provider: 01/19/17 02:55 Source: patient, family Exam Limitations: no limitations - Immun/Allergies/Home Medications Immunizations: IMMUNIZATION HX Immunizations Up to Date No History of Influenza Vaccine Yes Hx Pneumococcal Vaccination No Allergies/Adverse Reactions: Allergies Allergy/AdvReac Type Severity Reaction Status Date / Time codeine Allergy Mild Swelling Verified 01/19/17 02:41 of Throat trazodone AdvReac Mild RESTLESS Verified 01/19/17 02:41 LEG SYNDROME Home Medications: HOME MEDICATIONS Levothyroxine Sodium [Tirosint] 88 mcg PO DAILY 02/23/16 [Last Taken Unknown] Lansoprazole [Prevacid] 30 mg PO DAILY 09/22/16 [Last Taken Unknown] Disulfiram [Antabuse] 250 mg PO DAILY #30 tab 09/23/16 [Last Taken Unknown] Ibuprofen [Motrin] 200 mg PO Q6H PRN #0 tablet 09/23/16 [Last Taken Unknown] Naltrexone HCl [ReVia] 50 mg PO HS #30 tablet 09/23/16 [Last Taken Unknown] Topiramate [Topamax] 25 mg PO DAILY #30 tablet 09/23/16 [Last Taken Unknown] hydrOXYzine HCL [Atarax] 50 mg PO Q4H PRN #100 tablet 09/23/16 [Last Taken Unknown] lamoTRIgine [Lamictal] 25 mg PO DAILY@1700 #30 tablet 09/23/16 [Last Taken Unknown] - History of Present Illness Narrative: Pt was taking apart some electronics and lacerated his left thumb Occurred: just prior to arrival Location of Incident: home Severity: mild Method of Injury: Reports: incised Other Injuries: Reports: none Review of Systems - Review of Systems Constitutional: Absent: recent illness Skin: Present: See HPI Psych: Present: depressed - today because he lost his job, other - states he has been paranoid lately, has seen Dr Henry within the last week and he has adjusted his medications - Patient's Past Medical History Patient History - Medical: ADHD, Anxiety, Depression, GERD, Hypothyroidism, Other Patient History - Cardiac/Respiratory: History Unknown Patient History - Cancer: No Hx of Cancer Patient History - Surgical Procedures: Other Patient History - Other: None - Family History Father Family History - Medical: Alcohol Abuse, Other Family History - Cardiac/Respiratory: Hypertension, Hyperlipidemia Mother Family History - Cardiac/Respiratory: Hyperlipidemia Grandfather-Maternal Family History - Medical: , Depression, Other Grandmother-Paternal Family History - Medical: Alcohol Abuse, Other Family History - Cancer: No pertinent family hx - Social History Living Situations: home Abuse History: Hx of Substance Use Psych History: Hx of Anxiety, Hx of Depression Smoking Status: Current every day smoker Alcohol Use: heavy Drug Use: none - Immunizations Immunizations Up to Date: No Hx Pneumococcal Vaccination: No History of Influenza Vaccine: Yes Physical Exam - Physical Exam General Appearance: Present: wd/wn, alert, no apparent distress, anxious, irritable Eye Exam: Normal inspection: bilateral Neck: Present: supple, full range of motion Respiratory: Present: no respiratory distress, no accessory muscle use Peripheral Pulses: N=norm/S=strong/W=weak/B=bound/A=absent: Radial (L): Normal Extremity Exam: Present: other - laceration left thumb Skin Exam: Present: normal color, warm/dry, other - 3 cm flap laceration on the left thumb pad from the medial distal nail edge obliquely across the pad ED Progress - Vital Signs Vital Signs: Vital Signs 01/19/17 02:39 Temperature 36.5 C Pulse Rate 78 Respiratory 18 Rate Blood Pressure 118/76 O2 Sat by Pulse 98 Oximetry - Progress/Reassessment Chief Complaint: Upper Extremity Injury/Problem Procedures Left 1st Digit Date and Time: LACERATION REPAIR OF LEFT DISTAL THUMB Anesthesia: 1% Lidocaine, Digital Block I & D Prep: betadine prep Length of Repair/Wound (cm): 3 Wound's Depth/Shape: into subcutaneous, flap Wound Explored: other - clean wound, under nearby nail was very dirty. Area cleaned to avoid contamination Wound Intervention: margins revised Distal NVT: neuro/vasc intact, no tendon injury Wound Repaired With: sutures Suture Size/Type: 5-0, nylon Estimated blood loss (ml): 10 Wound Dressing: sterile dressing applied Complications: Pt ana procedure well Departure Clinical Impression: Laceration - Departure Disposition: Home Follow Up Needed Condition: Good Instructions: Laceration Care, Adult, [id number] Additional Instructions: have sutures taken out in 7-10 days Referrals: Michael Ross MD [Primary Care Provider] -
--- OUTSIDE RECORDS SUMMARY | 2017-01-19 03:24 | XMS REPORT | Continuity of Care Document ---
:1980 Author Organization [facility] ([facility]) Address [address] [place] [address] Phone [phone] Care Team Providers Name Role Phone Provider, No-Primary Care Primary Care Provider Unavailable Source Comments This disclosure is being made pursuant to the Care Everywhere program, applicable federal and state laws, and may not contain all informaitonavailable regarding this patient.[facility] ([facility]) Active Allergies and Adverse Reactions Not on File Current Medications Not on file Active Problems Not on file Social History Tobacco Use Types Packs/Day Years Used Date Never Assessed Plan of Care Health Maintenance Due Date Last Done Comments Hepatitis B Vaccine (1 of 3 - Primary Series) 1980 Tdap Vaccine 1989 Lipid Disorder Screening 1996 MMR Vaccine 1996 Td Vaccine 1996 Influenza Vaccine: Seasonal (#1) 03/29/2016 Results from Last 3 Months Not on file
[2017-01-19 03:32] VITALS: BP 116/78
== END 2017-01-19 03:31 | disposition home or self-care (01) ==
LOC: ER 02:33
PROC: 0JQK0ZZ Repair Left Hand Subcutaneous Tissue and Fascia, Open Approach (ICD-10-PCS; principal; 2017-01-19)
DX: S61.012A Laceration without foreign body of left thumb without damage to nail, initial encounter (principal); W45.8XXA Other foreign body or object entering through skin, initial encounter; Y93.89 Activity, other specified; Y92.009 Unspecified place in unspecified non-institutional (private) residence as the place of occurrence of the external cause; Z23 Encounter for immunization; Z72.0 Tobacco use

== ENCOUNTER 2017-01-19 18:42 | Emergency (ER) | payer OTHER ==
[2017-01-19 19:27] VITALS: BP 148/68
[2017-01-19 19:46] LABS: Hematocrit 45.1 % (42.0-52.0); Hemoglobin 15.5 gm/dL (13.5-18.0); Mean Cell Volume 84.5 fl (78-100); Mean Corpuscular Hgb Conc 34.4 g/dl (32-36); Neutrophil # 13.5 K/mm3 (1.3-6.0); Neutrophil % 78.2 % (42-75.0); Platelet Count 422 K/mm3 (150-450); Red Blood Count 5.34 M/mm3 (4.7-6.0); White Blood Count 17.3 K/mm3 (4.0-10.5)
[2017-01-19 20:08] LABS: ALT 47 U/L (19-67); AST 20 U/L (0-48); Albumin * 4.3 gm/dl (3.4-5.0); Alkaline Phosphatase * 148 U/L (50-170); Anion Gap 17.7 mmol/L (6.8-13.8); BUN/Creatinine Ratio 11.9 (9.0-21.6); Bilirubin, Total 0.3 mg/dL (0.0-1.1); Blood Urea Nitrogen 13 mg/dL (6-23); Ca. Corrected For Albumin 9.1 mg/dL (8.4-10.2); Calcium * 9.7 mg/dL (7.9-10.9); Carbon Dioxide 20.3 mmol/L (24-32.6); Chloride 106 mmol/L (97-106); Glucose * 164 mg/dL (70-110); Salicylate 5.8 mg/dL (2.8-20.0); Sodium 140 mmol/L (132-142); TSH * 1.084 uIU/mL (0.358-3.74); Total Protein 8.1 gm/dL (6.2-8.2)
[2017-01-19 20:47] LABS: Urine Bilirubin Negative (NEGATIVE); Urine Blood Negative /ul (NEGATIVE); Urine Ketone Negative (NEGATIVE); Urine Nitrite Negative (NEGATIVE); Urine Protein Negative (NEGATIVE); Urine Specific Gravity >=1.030 SP.GR. (1.005-1.030); Urine Urobilinogen Normal (NORMAL); Urine pH 5.5 pH (5.0-7.0)
[2017-01-19 20:57] LABS: Urine Appearance Clear; Urine Bacteria 1+; Urine Color Yellow; Urine RBC None Seen /hpf (0-5); Urine WBC 0-5 /hpf (0-5)
[2017-01-19 20:58] LABS: Urine Mucus Many - 3+
[2017-01-19 21:02] LABS: Cocaine Ur Negative (NEGATIVE); Urine Barbiturate Negative (NEGATIVE); Urine Benzodiazepines Negative (NEGATIVE); Urine Opiates Negative (NEGATIVE); Urine PCP Negative (NEGATIVE); Urine THC Negative (NEGATIVE)
--- OUTSIDE RECORDS SUMMARY | 2017-01-19 21:21 | XMS REPORT | Continuity of Care Document ---
:1980 Author Organization [facility] ([facility]) Address [address] [place] [address] Phone [phone] Care Team Providers Name Role Phone Provider, No-Primary Care Primary Care Provider Unavailable Source Comments This disclosure is being made pursuant to the Care Everywhere program, applicable federal and state laws, and may not contain all informaitonavailable regarding this patient.[facility] ([facility]) Active Allergies and Adverse Reactions Not on [...]
[2017-01-19] MEDS ORDERED: LORazepam 1 MG TABLET PO ONE (21:30)
--- NOTE | 2017-01-19 21:36 | ERNOTE ---
Psychological HPI - General Chief Complaint: Psychiatric Problem Source: Reports: patient, other - court committal Exam Limitations: Reports: clinical condition - Immun/Allergies/Home Medications Allergies/Adverse Reactions: Allergies codeine Allergy (Mild, Verified 01/19/17 02:41) Swelling of Throat trazodone Adverse Reaction (Mild, Verified 01/19/17 02:41) RESTLESS LEG SYNDROME Home Medications: HOME MEDICATIONS Levothyroxine Sodium [Tirosint] 88 mcg PO DAILY 02/23/16 [Last Taken Unknown] Lansoprazole [Prevacid] 30 mg PO DAILY 09/22/16 [Last Taken Unknown] Topiramate [Topamax] 25 mg PO DAILY #30 tablet 09/23/16 [Last Taken Unknown] hydrOXYzine HCL [Atarax] 50 mg PO Q4H PRN #100 tablet 09/23/16 [Last Taken Unknown] Acamprosate Calcium 333 mg PO TID 01/19/17 [Last Taken Unknown] Dextroamphetamine/Amphetamine [Dextroamp-Amphet ER 30 mg Cap] 30 mg PO BID 01/19 [Last Taken Unknown] Disulfiram [Antabuse] 250 mg PO DAILY 01/19/17 [Last Taken Unknown] LORazepam [Ativan] 2 mg PO HS 01/19/17 [Last Taken 01/19/17 20:00 2 mg] Naltrexone HCl [ReVia] 50 mg PO DAILY 01/19/17 [Last Taken Unknown] Topiramate [Trokendi Xr] 100 mg PO DAILY 01/19/17 [Last Taken Unknown] Venlafaxine HCl [Effexor Xr] 150 mg PO DAILY 01/19/17 [Last Taken Unknown] lamoTRIgine [Lamictal] 150 mg PO DAILY 01/19/17 [Last Taken Unknown] - History of Present Illness Narrative: Pt has been increasingly paranoid and delusional. He saw Dr. Henry on Tuesday but has continued to worsen since then. His and [id number] got a court committal today. Pt is asking for his HS medications Time Seen by Provider: 01/19/17 21:10 Arrived by: Reports: police Onset/duration: Reports: gradual onset Intent: Reports: other - paranoia Situational Problems: Reports: spouse, lost job Associated Symptoms: Reports: depressed, angry, frustrated, agitated, paranoid, hallucinating Prior Treament: Reports: recently seen, treated by physician Review of Systems - Review of Systems Constitutional: Present: no symptoms reported, recent illness - ENT. Absent: fever EYE: Present: no symptoms reported ENT: Present: nose pain, nose congestion Respiratory: Present: no symptoms reported Cardiology: Present: no symptoms reported Gastrointestinal/Abdominal: Present: no symptoms reported Genitourinary: Absent: pain, dysuria Musculoskeletal: Present: no symptoms reported Skin: Absent: rash, lesions Neurological: Present: depressed, emotional problems Endocrine: Present: no symptoms reported Hematologic/Lymphatic: Present: no symptoms reported Psych: Present: See HPI - Patient's Past Medical History Patient History - Medical: ADHD, Anxiety, Depression, GERD, Hypothyroidism, Other Patient History - Cardiac/Respiratory: History Unknown Patient History - Cancer: No Hx of Cancer Patient History - Surgical Procedures: Other Patient History - Other: None - Family History Father Family History - Medical: Alcohol Abuse, Other Family History - Cardiac/Respiratory: Hypertension, Hyperlipidemia Mother Family History - Cardiac/Respiratory: Hyperlipidemia Grandfather-Maternal Family History - Medical: , Depression, Other Grandmother-Paternal Family History - Medical: Alcohol Abuse, Other Family History - Cancer: No pertinent family hx - Social History Living Situations: home Abuse History: Hx of Substance Use Psych History: Hx of Anxiety, Hx of Depression Smoking Status: Current every day smoker Alcohol Use: heavy Drug Use: none - Immunizations Immunizations Up to Date: Yes Hx Pneumococcal Vaccination: No History of Influenza Vaccine: Yes Physical Exam - Physical Exam General Appearance: Present: wd/wn, alert, no apparent distress, irritable Eye Exam: Normal inspection: bilateral, EOMI: bilateral Ears, Nose, Throat: Present: nasal congestion - and inflamation. Absent: pharyngeal erythema, pharyngeal swelling Neck: Present: normal inspection, nontender Respiratory: Present: no respiratory distress, normal breath sounds, lungs clear Cardiovascular/Chest: Present: regular rate, rhythm, no murmur, normal peripheral pulses Gastrointestinal/Abdominal: Present: normal bowel sounds, nontender, no organomegaly Back Exam: Present: normal inspection, normal range of motion, no vertebral tenderness Extremity Exam: Present: normal inspection, normal range of motion, no edema Neurological Exam: Present: alert, oriented, other - depressed mood mixed with episodes of mild agitation Skin Exam: Present: normal color, warm/dry Lymphatic Exam: Present: no adenopathy ED Progress - Results and Orders Patient's Lab Results:: I have reviewed the patient's lab results. Results and Orders: Laboratory Tests 01/19/17 01/19/17 01/19/17 19:40 19:40 19:40 WBC 17.3 H Hgb 15.5 Hct 45.1 Plt Count 422 Neutrophils % 78.2 H Sodium 140 Potassium 4.0 Chloride 106 Carbon Dioxide 20.3 L Anion Gap 17.7 H BUN 13 Creatinine 1.09 Est GFR (Non-Af Amer) 80 BUN/Creatinine Ratio 11.9 Random Glucose 164 H Calcium 9.7 Total Bilirubin 0.3 AST 20 ALT 47 Alkaline Phosphatase 148 Total Protein 8.1 Albumin 4.3 TSH 1.084 Urine Color Yellow Urine Appearance Clear Urine pH 5.5 Ur Specific [place] >=1.030 Urine Protein Negative Urine Glucose (UA) Negative Urine Ketones Negative Urine Blood Negative Urine Nitrate Negative Urine Bilirubin Negative Urine Urobilinogen Normal Ur Leukocyte Esterase Negative Urine RBC None seen Urine WBC 0-5 Ur Epithelial Cells 0-5 Calcium Oxalate Crystal Moderate - 2+ H Urine Bacteria 1+ H Urine Mucus Many - 3+ H Urine Culture Comments No culture indicated Salicylates 5.8 Urine Opiates Screen Acetaminophen Less than 0.2 L Barbiturate Screen Ur Phencyclidine Scrn Urine Amphetamine U Benzodiazepines Scrn Urine Cocaine Screen Urine Marijuana (THC) Ethyl Alcohol Less than 3.0 01/19/17 19:40 WBC Hgb Hct Plt Count Neutrophils % Sodium Potassium Chloride Carbon Dioxide Anion Gap BUN Creatinine Est GFR (Non-Af Amer) BUN/Creatinine Ratio Random Glucose Calcium Total Bilirubin AST ALT Alkaline Phosphatase Total Protein Albumin TSH Urine Color Urine Appearance Urine pH Ur Specific [place] Urine Protein Urine Glucose (UA) Urine Ketones Urine Blood Urine Nitrate Urine Bilirubin Urine Urobilinogen Ur Leukocyte Esterase Urine RBC Urine WBC Ur Epithelial Cells Calcium Oxalate Crystal Urine Bacteria Urine Mucus Urine Culture Comments Salicylates Urine Opiates Screen Negative Acetaminophen Barbiturate Screen Negative Ur Phencyclidine Scrn Negative Urine Amphetamine Positive H U Benzodiazepines Scrn Negative Urine Cocaine Screen Negative Urine Marijuana (THC) Negative Ethyl Alcohol - Vital Signs Patient's Vital Signs:: I have reviewed the patient's vital signs. Vital Signs: Vital Signs 01/19/17 01/19/17 19:09 21:09 Temperature 37 C 37 C Pulse Rate 122 H 122 H Respiratory 18 18 Rate Blood Pressure 148/68 148/68 O2 Sat by Pulse 98 98 Oximetry - EKG EKG read: Interp. by me EKG Comments: sinus tachycardia - Progress/Reassessment Chief Complaint: Psychiatric Problem Progress:: Unchanged Progress Note-Subjective: 01/20/17 00:[address] Cristofer Weaver at [facility]. We discussed the case and he agrees to accept the patient in transfer for psychiatric evaluation and treatment 01/20/17 02:08 [facility] transportation arrive to transport patient to [facility]. Departure Clinical Impression: Bipolar affective disorder, depressed, severe, with psychotic behavior - Departure Disposition: Transferred to other hospital Condition: Fair
[2017-01-19] MEDS ORDERED: TOPIRAMATE 50 MG TABLET ONE (21:44)
[2017-01-19] MEDS ORDERED: LORazepam 1 MG TABLET ONE (21:53)
[2017-01-19] MEDS ORDERED: TOPIRAMATE 50 MG TABLET PO ONE (22:00)
[2017-01-19] MEDS ORDERED: NICOTINE 21 MG PATC TD SCH (22:30)
[2017-01-19] MEDS ORDERED: NICOTINE 21 MG PATC TD ONE (22:57)
== END 2017-01-20 02:15 | disposition short-term general hospital (02) ==
LOC: ER 18:42
DX: F32.3 Major depressive disorder, single episode, severe with psychotic features (principal); F90.9 Attention-deficit hyperactivity disorder, unspecified type; F41.8 Other specified anxiety disorders; K21.9 Gastro-esophageal reflux disease without esophagitis; E03.9 Hypothyroidism, unspecified; Z72.0 Tobacco use
CPT/HCPCS: 36415; 80053; 80307; 81001; 84443; 85025; 93005; 99285; G0480; G0481

== ENCOUNTER 2017-03-20 03:15 | Emergency (ER) | payer OTHER ==
[2017-03-20] MEDS ORDERED: TETRACAINE HCL 150 DROP BTL ONE (03:21)
[2017-03-20 03:26] VITALS: BP 126/76
[2017-03-20] MEDS ORDERED: TETRACAINE HCL 150 DROP BTL EACHEYE ONE (03:29)
--- NOTE | 2017-03-20 03:47 | ERNOTE ---
ENT HPI Date of Service: 03/20/17 Presenting Symptoms: eye pain Time Seen by Provider: 03/20/17 03:30 Source: patient - Immun/Allergies/Home Medications Immunizations: IMMUNIZATION HX Immunizations Up to Date Yes History of Influenza Vaccine No Hx Pneumococcal Vaccination No Allergies/Adverse Reactions: Allergies Allergy/AdvReac Type Severity Reaction Status Date / Time codeine Allergy Mild Swelling Verified 01/19/17 02:41 of Throat trazodone AdvReac Mild RESTLESS Verified 01/19/17 02:41 LEG SYNDROME Home Medications: HOME MEDICATIONS Levothyroxine Sodium [Tirosint] 88 mcg PO DAILY 02/23/16 [Last Taken Unknown] Lansoprazole [Prevacid] 30 mg PO DAILY 09/22/16 [Last Taken Unknown] Acamprosate Calcium 333 mg PO TID 01/19/17 [Last Taken Unknown] Naltrexone HCl [ReVia] 50 mg PO DAILY 01/19/17 [Last Taken Unknown] Venlafaxine HCl [Effexor Xr] 150 mg PO DAILY 01/19/17 [Last Taken Unknown] lamoTRIgine [Lamictal] 150 mg PO DAILY 01/19/17 [Last Taken Unknown] HYDROcodone/ACETAMINOPHEN [Matthews 5-325] 1 each PO Q4H PRN #4 tablet 03/20/17 [ Last Taken Unknown] Lisdexamfetamine Dimesylate [Vyvanse] 70 mg PO DAILY 03/20/17 [Last Taken Unknown] Topiramate [Topiramate ER] 200 mg PO HS 03/20/17 [Last Taken Unknown] - History of Present Illness Narrative: Patient is a 36-year-old male who comes to the emergency department complaining of irritation primarily to his left eye but a bit to his right eye. 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 He was fine immediately afterwards but over the last few hours has developed irritation. He denies wearing contact lenses. The patient denies any fever or chill. He denies any recent trauma to the eyes. No other complaints ENT Location: Present: eye (R), eye (L) Associated Symptoms - ENT: Reports: denies symptoms. Denies: fever Review of Systems - Review of Systems Constitutional: Present: no symptoms reported EYE: Present: see HPI, eye pain, tearing ENT: Present: no symptoms reported Respiratory: Present: no symptoms reported Cardiology: Present: no symptoms reported Gastrointestinal/Abdominal: Present: no symptoms reported Genitourinary: Present: no symptoms reported Musculoskeletal: Present: no symptoms reported Skin: Present: no symptoms reported Neurological: Present: no symptoms reported Endocrine: Present: no symptoms reported Hematologic/Lymphatic: Present: no symptoms reported Psych: Present: no symptoms reported All Other Systems: All systems neg except as marked - Patient's Past Medical History Patient History - Medical: ADHD, Anxiety, Depression, GERD, Hypothyroidism, Other Patient History - Cardiac/Respiratory: History Unknown Patient History - Cancer: No Hx of Cancer Patient History - Surgical Procedures: Other Patient History - Other: None - Family History Father Family History - Medical: Alcohol Abuse, Other Family History - Cardiac/Respiratory: Hypertension, Hyperlipidemia Mother Family History - Cardiac/Respiratory: Hyperlipidemia Grandfather-Maternal Family History - Medical: , Depression, Other Grandmother-Paternal Family History - Medical: Alcohol Abuse, Other Family History - Cancer: No pertinent family hx - Social History Living Situations: home Abuse History: Hx of Substance Use Psych History: Hx of Anxiety, Hx of Depression Smoking Status: Current every day smoker Patient requests Smoking Cessation Consult: No Initiate information on Smoking Cessation: No Alcohol Use: heavy Drug Use: none, other - Immunizations Immunizations Up to Date: Yes Hx Pneumococcal Vaccination: No History of Influenza Vaccine: No Physical Exam - Physical Exam General Appearance: Present: wd/wn, alert, no apparent distress Head Exam: Present: normal inspection, no evidence of injury Eye Exam: Normal inspection: bilateral - bilateral eyes have corneal irritation complete. Slit lamp was performed and demonstrates UV keratitis left much greater than right., PERRL: bilateral, EOMI: bilateral, Sclera injection: bilateral Ears, Nose, Throat: Present: normal ENT inspection Neck: Present: normal inspection Respiratory: Present: no respiratory distress, other - occasional wheeze Cardiovascular/Chest: Present: regular rate, rhythm, normal peripheral pulses Gastrointestinal/Abdominal: Present: normal bowel sounds, nontender, soft Back Exam: Present: normal inspection, no CVA tenderness Extremity Exam: Present: normal inspection, non-tender Neurological Exam: Present: alert, no motor/sensory deficits Skin Exam: Present: normal color, warm/dry Lymphatic Exam: Present: no adenopathy ED Progress - Vital Signs Patient's Vital Signs:: I have reviewed the patient's vital signs. Vital Signs: Vital Signs 03/20/17 03:15 Temperature 36.5 C Pulse Rate 94 Respiratory 16 Rate Blood Pressure 126/76 O2 Sat by Pulse 98 Oximetry - Progress/Reassessment Chief Complaint: Eye Injury/Trauma Plan - Plan Plan: The patient has UV keratitis from welding. Left eye is much worse than the right. I discussed with him the fact that this will likely remain irritated for 3-4 days. I discussed with him patching his eye. He would like to try that. I will give him a couple of tablets of Matthews to go home with. He should not need more than the 4 tablets I'm going to give him. He is aware he needs to follow-up with the auto air conditioning apprentice. He will set up an appointment as soon as possible. No welding until he is completely better. He should get true welding goggles. Departure Clinical Impression: UV keratitis - Departure Disposition: Home self-care Condition: Stable Additional Instructions: As we discussed U of sustained a burn to your surface of your eyes. The left eye is much worse than the right. The should get better over 3-4 days. He didn 't keep her eye patched if needed. Take the prescribed Lortab to help with severe pain. No driving or operating machinery while taking this. It might make him dizzy and might make him sleepy. Call an auto air conditioning apprentice and set up a follow-up appointment. Call a family doctor and set up follow-up appointment. If he develop any new or worrisome symptoms he needs to return to the ER. Referrals: Michael Ross MD [Primary Care Provider] - Prescriptions: HYDROcodone/ACETAMINOPHEN [Matthews 5-325] 1 each PO Q4H PRN #4 tablet PRN Reason: Pain
== END 2017-03-20 03:55 | disposition home or self-care (01) ==
LOC: ER 03:15
DX: H16.132 Photokeratitis, left eye (principal); F17.200 Nicotine dependence, unspecified, uncomplicated; Y93.89 Activity, other specified; Y92.89 Other specified places as the place of occurrence of the external cause; E03.9 Hypothyroidism, unspecified; F41.9 Anxiety disorder, unspecified; F32.9 Major depressive disorder, single episode, unspecified

== ENCOUNTER 2017-03-23 02:24 | Emergency (ER) | payer OTHER ==
[2017-03-23] MEDS ORDERED: TETRACAINE HCL 150 DROP BTL ONE (02:42)
[2017-03-23] MEDS ORDERED: TETRACAINE HCL 150 DROP BTL EACHEYE ONE (02:43)
[2017-03-23] MEDS ORDERED: KETOROLAC TROMETHAMINE 60 MG/2 ML VIAL IM ONE ×2 (03:14→03:15)
[2017-03-23] MEDS ORDERED: GENTAMICIN SULFATE 3.5 APPL TUBE LEFTEYE ONE (03:16)
[2017-03-23 03:20] VITALS: BP 120/68
[2017-03-23] MEDS ORDERED: GENTAMICIN SULFATE 3.5 APPL TUBE ONE (03:22)
--- NOTE | 2017-03-23 03:24 | ERNOTE ---
ENT HPI Presenting Symptoms: eye pain Time Seen by Provider: 03/23/17 03:01 Source: patient Exam Limitations: no limitations - Immun/Allergies/Home Medications Immunizations: IMMUNIZATION HX Immunizations Up to Date Yes History of Influenza Vaccine No Hx Pneumococcal Vaccination No Allergies/Adverse Reactions: Allergies Allergy/AdvReac Type Severity Reaction Status Date / Time codeine Allergy Mild Swelling Verified 01/19/17 02:41 of Throat trazodone AdvReac Mild RESTLESS Verified 01/19/17 02:41 LEG SYNDROME Home Medications: HOME MEDICATIONS Levothyroxine Sodium [Tirosint] 88 mcg PO DAILY 02/23/16 [Last Taken Unknown] Acamprosate Calcium 333 mg PO TID 01/19/17 [Last Taken Unknown] Venlafaxine HCl [Effexor Xr] 150 mg PO DAILY 01/19/17 [Last Taken Unknown] Topiramate [Topiramate ER] 200 mg PO HS 03/20/17 [Last Taken Unknown] - History of Present Illness Narrative: 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 Complains of left eye pain today Severity: Present: mild ENT Location: Present: eye (L) Prearrival Treatment: Present: no prearrival treatment Review of Systems - Review of Systems Constitutional: Absent: recent illness EYE: Present: see HPI, eye pain, tearing. Absent: eye discharge, double vision ENT: Present: no symptoms reported Skin: Present: no symptoms reported - Patient's Past Medical History Patient History - Medical: ADHD, Anxiety, Depression, GERD, Hypothyroidism, Other Patient History - Cardiac/Respiratory: No pertinent hx Patient History - Cancer: No Hx of Cancer Patient History - Surgical Procedures: Orthopedic Patient History - Other: None - Family History Father Family History - Medical: Alcohol Abuse, Other Family History - Cardiac/Respiratory: Hypertension, Hyperlipidemia Mother Family History - Cardiac/Respiratory: Hyperlipidemia Grandfather-Maternal Family History - Medical: , Depression, Other Grandmother-Paternal Family History - Medical: Alcohol Abuse, Other Family History - Cancer: No pertinent family hx - Social History Living Situations: spouse Abuse History: Hx of Substance Use Psych History: Hx of Anxiety, Hx of Depression Smoking Status: Current every day smoker Have you smoked in the past 12 months: Yes Alcohol Use: sober Drug Use: none, other - Immunizations Immunizations Up to Date: Yes Hx Pneumococcal Vaccination: No History of Influenza Vaccine: No Physical Exam - Physical Exam General Appearance: Present: wd/wn, alert, no apparent distress Head Exam: Present: normal inspection, no evidence of injury Eye Exam: PERRL: bilateral, EOMI: bilateral, Sclera injection: left Ears, Nose, Throat: Present: normal ENT inspection Neck: Present: normal inspection, nontender Respiratory: Present: no respiratory distress, no accessory muscle use Neurological Exam: Present: alert, oriented Skin Exam: Present: normal color, warm/dry ED Progress - Vital Signs Vital Signs: Vital Signs 03/23/17 02:28 Temperature 37.0 C Pulse Rate 90 Respiratory 16 Rate Blood Pressure 144/84 O2 Sat by Pulse 99 Oximetry - Progress/Reassessment Chief Complaint: Eye Injury/Trauma Procedures Eye Location: left eye Tetracaine Drops Administered: Yes Cyclogel 2 Drops Administered: left eye Eye - Cornea: Left: examined w/fluorescein, fluorescein dye uptake - minimal lower cornea/ sclera Antibiotic Ointment/Drps Admin: left eye Complications: Pt ana procedure well Departure Clinical Impression: Flash burn of left eye - Departure Disposition: Home self-care Condition: Good Additional Instructions: Use eye protection at all times. use eye ointment for 3-5 days. Referrals: Michael Ross MD [Primary Care Provider] -
== END 2017-03-23 03:25 | disposition home or self-care (01) ==
LOC: ER 02:24
DX: T26.12XA Burn of cornea and conjunctival sac, left eye, initial encounter (principal); F17.200 Nicotine dependence, unspecified, uncomplicated; X17.XXXA Contact with hot engines, machinery and tools, initial encounter; Y93.89 Activity, other specified; Y92.63 Factory as the place of occurrence of the external cause; Y99.0 Civilian activity done for income or pay; E03.9 Hypothyroidism, unspecified; F41.9 Anxiety disorder, unspecified; F32.9 Major depressive disorder, single episode, unspecified

== ENCOUNTER 2017-03-30 04:23 | Emergency (ER) | payer OTHER ==
--- NOTE | 2017-03-30 04:41 | ERNOTE ---
Medical Problem HPI - General Chief Complaint: Drug Overdose Time Seen by Provider: 03/30/17 04:24 Source: patient, EMS Exam Limitations: clinical condition - Immun/Allergies/Home Medications Immunizations: IMMUNIZATION HX Immunizations Up to Date Yes History of Influenza Vaccine No Hx Pneumococcal Vaccination No Allergies/Adverse Reactions: Allergies codeine Allergy (Mild, Verified 03/30/17 04:31) Swelling of Throat trazodone Adverse Reaction (Mild, Verified 03/30/17 04:31) RESTLESS LEG SYNDROME Home Medications: HOME MEDICATIONS Levothyroxine Sodium [Tirosint] 88 mcg PO DAILY 02/23/16 [Last Taken Unknown] Acamprosate Calcium 333 mg PO TID 01/19/17 [Last Taken Unknown] Venlafaxine HCl [Effexor Xr] 150 mg PO DAILY 01/19/17 [Last Taken Unknown] Topiramate [Topiramate ER] 200 mg PO HS 03/20/17 [Last Taken Unknown] Lisdexamfetamine Dimesylate [Vyvanse] 70 mg PO DAILY 03/30/17 [Last Taken Unknown] lamoTRIgine [Lamictal] 150 mg PO DAILY 03/30/17 [Last Taken Unknown] risperiDONE [Risperidone] 2 mg PO BID 03/30/17 [Last Taken Unknown] - History of Present History Narrative: Pt took approx. 20 tabs of 70 mg Vyvanse in an attempt to harm himself. He states he "just can't do this anymore". When asked what he meant he states he hears voices and is depressed and nothing seems to help him. Timing: getting worse Severity: moderate Review of Systems - Review of Systems Constitutional: Absent: recent illness EYE: Absent: vision changes ENT: Present: no symptoms reported Respiratory: Absent: shortness of breath Cardiology: Absent: chest pain Gastrointestinal/Abdominal: Present: nausea, vomiting - induced after taking the Vyvanse Genitourinary: Present: frequency. Absent: pain, dysuria Musculoskeletal: Present: no symptoms reported Skin: Present: no symptoms reported Neurological: Absent: headache Endocrine: Present: no symptoms reported, increased thirst Hematologic/Lymphatic: Present: no symptoms reported Psych: Present: See HPI, other - audible hallucinations - Patient's Past Medical History Patient History - Medical: ADHD, Anxiety, Depression, GERD, Hypothyroidism, Other Patient History - Cardiac/Respiratory: No pertinent hx Patient History - Cancer: No Hx of Cancer Patient History - Surgical Procedures: Orthopedic Patient History - Other: None - Family History Father Family History - Medical: Alcohol Abuse, Other Family History - Cardiac/Respiratory: Hypertension, Hyperlipidemia Mother Family History - Cardiac/Respiratory: Hyperlipidemia Grandfather-Maternal Family History - Medical: , Depression, Other Grandmother-Paternal Family History - Medical: Alcohol Abuse, Other Family History - Cancer: No pertinent family hx - Social History Living Situations: home Abuse History: Hx of Substance Use Psych History: Hx of Anxiety, Hx of Depression Smoking Status: Current every day smoker Alcohol Use: sober Drug Use: none, other - Immunizations Immunizations Up to Date: Yes Hx Pneumococcal Vaccination: No History of Influenza Vaccine: No Physical Exam - Physical Exam General Appearance: Present: wd/wn, alert, no apparent distress, other - flat affect Head Exam: Present: normal inspection, no evidence of injury Eye Exam: Normal inspection: bilateral Ears, Nose, Throat: Present: normal ENT inspection Neck: Present: normal inspection, nontender Respiratory: Present: no respiratory distress, chest nontender, lungs clear Gastrointestinal/Abdominal: Present: normal bowel sounds, nontender, nondistended, soft Extremity Exam: Present: normal inspection, normal range of motion, no edema Neurological Exam: Present: oriented Skin Exam: Present: normal color, warm/dry Lymphatic Exam: Present: no adenopathy ED Progress - Results and Orders Patient's Lab Results:: I have reviewed the patient's lab results. Results and Orders: Laboratory Tests 03/30/17 03/30/17 03/30/17 04:38 04:38 04:42 WBC 13.2 H Hgb 13.6 Hct 39.4 L Plt Count 278 Sodium 127 L Potassium 3.2 L Chloride 92 L Carbon Dioxide 22.8 L Anion Gap 15.4 H BUN 11 Creatinine 0.99 Est GFR (Non-Af Amer) 90 BUN/Creatinine Ratio 11.1 Random Glucose 159 H Calcium 8.5 Calcium Adj for Albumin 8.2 L Total Bilirubin 0.3 AST 16 ALT 38 Alkaline Phosphatase 117 Total Protein 7.4 Albumin 4.0 TSH 2.083 Urine Color Colorless Urine Appearance Clear Urine pH 6.5 Ur Specific [place] <=1.005 Urine Protein Negative Urine Glucose (UA) Negative Urine Ketones Negative Urine Blood Negative Urine Nitrate Negative Urine Bilirubin Negative Urine Urobilinogen Normal Ur Leukocyte Esterase Negative Urine RBC None seen Urine WBC None seen Ur Epithelial Cells None seen Urine Bacteria None seen Urine Culture Comments No culture indicated Salicylates 4.9 Urine Opiates Screen Barbiturate Screen Ur Phencyclidine Scrn Urine Amphetamine U Benzodiazepines Scrn Urine Cocaine Screen Urine Marijuana (THC) Ethyl Alcohol Less than 3.0 03/30/17 04:42 WBC Hgb Hct Plt Count Sodium Potassium Chloride Carbon Dioxide Anion Gap BUN Creatinine Est GFR (Non-Af Amer) BUN/Creatinine Ratio Random Glucose Calcium Calcium Adj for Albumin Total Bilirubin AST ALT Alkaline Phosphatase Total Protein Albumin TSH Urine Color Urine Appearance Urine pH Ur Specific [place] Urine Protein Urine Glucose (UA) Urine Ketones Urine Blood Urine Nitrate Urine Bilirubin Urine Urobilinogen Ur Leukocyte Esterase Urine RBC Urine WBC Ur Epithelial Cells Urine Bacteria Urine Culture Comments Salicylates Urine Opiates Screen Negative Barbiturate Screen Negative Ur Phencyclidine Scrn Negative Urine Amphetamine Positive H U Benzodiazepines Scrn Negative Urine Cocaine Screen Negative Urine Marijuana (THC) Negative Ethyl Alcohol - Vital Signs Patient's Vital Signs:: I have reviewed the patient's vital signs. Vital Signs: Vital Signs 03/30/17 04:25 Temperature 36.6 C Pulse Rate 119 H Respiratory 22 H Rate Blood Pressure 177/94 O2 Sat by Pulse 96 Oximetry - EKG EKG: supraventricular tachycardia, nonspecific ST T wave changes EKG read: Interp. by me - Progress/Reassessment Chief Complaint: Drug Overdose Progress:: Unchanged Progress Note-Subjective: 03/30/17 06:[address] Gallego in the ED at [facility], he agrees to accept the patient Departure - Departure Clinical Impression: Bipolar affective disorder, depressed, severe, with psychotic behavior, Acute hyponatremia Overdose by amphetamine Qualifiers: Encounter type: initial encounter Injury intent: intentional self-harm Qualified Code(s): T43.622A - Poisoning by amphetamines, intentional self-harm, initial encounter Disposition: [facility] Condition: Fair Referrals: Michael Ross MD [Primary Care Provider] -
[2017-03-30 04:49] LABS: Hematocrit 39.4 % (42.0-52.0); Hemoglobin 13.6 gm/dL (13.5-18.0); Mean Cell Volume 83.1 fl (78-100); Mean Corpuscular Hemoglobin 28.7 pg (27-31); Mean Corpuscular Hgb Conc 34.5 g/dl (32-36); Mean Platelet Volume 9.7 fl (6.0-9.5); Neutrophil # 9.3 K/mm3 (1.3-6.0); Neutrophil % 70.9 % (42-75.0); Platelet Count 278 K/mm3 (150-450); Red Blood Count 4.74 M/mm3 (4.7-6.0); Red Cell Distribution Width 13.3 % (11.5-14.0); White Blood Count 13.2 K/mm3 (4.0-10.5)
[2017-03-30 04:57] LABS: Urine Bilirubin Negative (NEGATIVE); Urine Blood Negative /ul (NEGATIVE); Urine Ketone Negative (NEGATIVE); Urine Nitrite Negative (NEGATIVE); Urine Protein Negative (NEGATIVE); Urine Specific Gravity <=1.005 SP.GR. (1.005-1.030); Urine Urobilinogen Normal (NORMAL); Urine pH 6.5 pH (5.0-7.0)
[2017-03-30 05:04] LABS: Urine Appearance Clear; Urine Bacteria None Seen; Urine Color Colorless; Urine RBC None Seen /hpf (0-5); Urine WBC None Seen /hpf (0-5)
[2017-03-30 05:07] LABS: Cocaine Ur Negative (NEGATIVE); Urine Barbiturate Negative (NEGATIVE); Urine Benzodiazepines Negative (NEGATIVE); Urine Opiates Negative (NEGATIVE); Urine PCP Negative (NEGATIVE); Urine THC Negative (NEGATIVE)
[2017-03-30 05:15] LABS: ALT 38 U/L (19-67); AST 16 U/L (0-48); Alkaline Phosphatase * 117 U/L (50-170); Anion Gap 15.4 mmol/L (6.8-13.8); BUN/Creatinine Ratio 11.1 (9.0-21.6); Bilirubin, Total 0.3 mg/dL (0.0-1.1); Blood Urea Nitrogen 11 mg/dL (6-23); Ca. Corrected For Albumin 8.2 mg/dL (8.4-10.2); Calcium * 8.5 mg/dL (7.9-10.9); Carbon Dioxide 22.8 mmol/L (24-32.6); Chloride 92 mmol/L (97-106); Glucose * 159 mg/dL (70-110); Potassium 3.2 mmol/L (3.4-4.6); Salicylate 4.9 mg/dL (2.8-20.0); Sodium 127 mmol/L (132-142); TSH * 2.083 uIU/mL (0.358-3.74); Total Protein 7.4 gm/dL (6.2-8.2)
[2017-03-30] MEDS ORDERED: ONDANSETRON HCL/PF 2 MG/ML VIAL ONE (05:50)
[2017-03-30] MEDS ORDERED: ONDANSETRON HCL/PF 2 MG/ML VIAL IV ONE (05:50)
[2017-03-30] MEDS ORDERED: NORMAL SALINE 1,000 ML IV ONE (06:18)
[2017-03-30] MEDS ORDERED: LORazepam 1 MG TABLET PO ONE (06:42)
[2017-03-30] MEDS ORDERED: LORazepam 1 MG TABLET ONE (06:42)
[2017-03-30 08:31] VITALS: BP 145/81
== END 2017-03-30 08:30 | disposition short-term general hospital (02) ==
LOC: ER 04:23
DX: F31.5 Bipolar disorder, current episode depressed, severe, with psychotic features (principal); E87.1 Hypo-osmolality and hyponatremia; T43.622A Poisoning by amphetamines, intentional self-harm, initial encounter; K21.9 Gastro-esophageal reflux disease without esophagitis; E03.9 Hypothyroidism, unspecified; F17.200 Nicotine dependence, unspecified, uncomplicated
CPT/HCPCS: 36415; 80053; 80307; 81001; 84443; 85025; 93005; 94760; 96374; 99285; G0480; G0481; J2405

== ENCOUNTER 2017-04-06 18:36 | Emergency (ER) | payer OTHER ==
[2017-04-06 19:43] LABS: Hematocrit 37.5 % (42.0-52.0); Hemoglobin 13.3 gm/dL (13.5-18.0); Mean Cell Volume 81.7 fl (78-100); Mean Corpuscular Hgb Conc 35.5 g/dl (32-36); Mean Platelet Volume 9.3 fl (6.0-9.5); Platelet Count 314 K/mm3 (150-450); Red Blood Count 4.59 M/mm3 (4.7-6.0); Red Cell Distribution Width 13.2 % (11.5-14.0); White Blood Count 15.9 K/mm3 (4.0-10.5)
[2017-04-06 19:52] LABS: Total Cells Counted 100
[2017-04-06 19:57] LABS: ALT 50 U/L (19-67); AST 20 U/L (0-48); Albumin * 4.1 gm/dl (3.4-5.0); Alkaline Phosphatase * 132 U/L (50-170); BUN/Creatinine Ratio 8.3 (9.0-21.6); Bilirubin, Total 0.3 mg/dL (0.0-1.1); Blood Urea Nitrogen 8 mg/dL (6-23); Ca. Corrected For Albumin 8.1 mg/dL (8.4-10.2); Calcium * 8.5 mg/dL (7.9-10.9); Carbon Dioxide 19.9 mmol/L (24-32.6); Chloride 91 mmol/L (97-106); Glucose * 120 mg/dL (70-110); Potassium 2.9 mmol/L (3.4-4.6); Salicylate Less than 2.8 mg/dL (2.8-20.0); Sodium 127 mmol/L (132-142); Total Protein 7.4 gm/dL (6.2-8.2)
[2017-04-06 20:06] LABS: Atypical (Reactive) Lymph 3 % (0-2); Immature Granulocyte 5 (0-1); Lymphocyte 14 % (20-51); Monocyte 4 % (0-9); Neutrophil 74 % (42-75); Neutrophil # 11.8 K/mm3 (1.3-6.0)
[2017-04-06 20:08] LABS: Dohle Bodies 2+; Giant Platelets 1+; Platelet Estimate Normal (NORMAL); RBC Morphology Normal (NORMAL); Toxic Granulation 2+
[2017-04-06 20:12] LABS: Urine Bilirubin Negative (NEGATIVE); Urine Blood Negative /ul (NEGATIVE); Urine Ketone Negative (NEGATIVE); Urine Nitrite Negative (NEGATIVE); Urine Protein Negative (NEGATIVE); Urine Specific Gravity <=1.005 SP.GR. (1.005-1.030); Urine Urobilinogen Normal (NORMAL); Urine pH 6.5 pH (5.0-7.0)
[2017-04-06 20:21] LABS: Urine Appearance Slightly Cloudy; Urine Color Brown
[2017-04-06 20:22] LABS: Urine Amorphous Sediment Many - 3+ (NONE-FEW); Urine Bacteria 2+; Urine RBC None Seen /hpf (0-5); Urine WBC None Seen /hpf (0-5)
[2017-04-06 20:25] LABS: Cocaine Ur Negative (NEGATIVE); Urine Barbiturate Negative (NEGATIVE); Urine Benzodiazepines Negative (NEGATIVE); Urine Opiates Negative (NEGATIVE); Urine PCP Negative (NEGATIVE); Urine THC Negative (NEGATIVE)
--- NOTE | 2017-04-06 20:49 | ERNOTE ---
Medical Problem HPI - General Chief Complaint: Drug Overdose Time Seen by Provider: 04/06/17 20:39 Source: patient, family Exam Limitations: clinical condition - Immun/Allergies/Home Medications Immunizations: IMMUNIZATION HX Immunizations Up to Date Yes History of Influenza Vaccine No Hx Pneumococcal Vaccination No Allergies/Adverse Reactions: Allergies codeine Allergy (Mild, Verified 04/06/17 19:11) Swelling of Throat trazodone Adverse Reaction (Mild, Verified 04/06/17 19:11) RESTLESS LEG SYNDROME Home Medications: HOME MEDICATIONS Levothyroxine Sodium [Tirosint] 88 mcg PO DAILY 02/23/16 [Last Taken Unknown] Venlafaxine HCl [Effexor Xr] 150 mg PO DAILY 01/19/17 [Last Taken Unknown] Topiramate [Topiramate ER] 50 mg PO HS 03/20/17 [Last Taken Unknown] lamoTRIgine [Lamictal] 100 mg PO DAILY 03/30/17 [Last Taken Unknown] - History of Present History Narrative: brought the patient in with report that he took an unknown amount of percocet, norco and ginsing in an apparent attempt to harm himself. Timing: getting worse Severity: moderate Review of Systems - Narrative Narrative: Pt will not answer questions for ROS. - Review of Systems Psych: Present: depressed - Patient's Past Medical History Patient History - Medical: ADHD, Anxiety, Depression, GERD, Hypothyroidism, Other Patient History - Cardiac/Respiratory: No pertinent hx Patient History - Cancer: No Hx of Cancer Patient History - Surgical Procedures: Orthopedic Patient History - Other: None - Family History Father Family History - Medical: Alcohol Abuse, Other Family History - Cardiac/Respiratory: Hypertension, Hyperlipidemia Mother Family History - Cardiac/Respiratory: Hyperlipidemia Grandfather-Maternal Family History - Medical: , Depression, Other Grandmother-Paternal Family History - Medical: Alcohol Abuse, Other Family History - Cancer: No pertinent family hx - Social History Living Situations: home Abuse History: Hx of Substance Use Psych History: Hx of Anxiety, Hx of Depression Smoking Status: Current every day smoker Have you smoked in the past 12 months: Yes Alcohol Use: sober Drug Use: none, other - Immunizations Immunizations Up to Date: Yes Hx Pneumococcal Vaccination: No History of Influenza Vaccine: No Physical Exam - Physical Exam General Appearance: Present: wd/wn, alert, no apparent distress Head Exam: Present: normal inspection, no evidence of injury Eye Exam: Normal inspection: bilateral - initially, Eye drainage: left - After incident with his eye there was serosanguanous drainage from his eye with laceration just below and lateral to his pupil Ears, Nose, Throat: Present: normal ENT inspection Neck: Present: normal inspection, nontender Respiratory: Present: no respiratory distress, normal breath sounds, lungs clear Cardiovascular/Chest: Present: regular rate, rhythm, no murmur Gastrointestinal/Abdominal: Present: normal bowel sounds, nontender, nondistended Male Genitals Exam: Present: normal genitalia Back Exam: Present: normal inspection, normal range of motion Extremity Exam: Present: normal inspection, normal range of motion, no edema Neurological Exam: Present: alert Skin Exam: Present: normal color, warm/dry ED Progress - Results and Orders Patient's Lab Results:: I have reviewed the patient's lab results. Results and Orders: Laboratory Tests 04/06/17 04/06/17 04/06/17 19:42 19:42 19:43 WBC 15.9 H Hgb 13.3 L Hct 37.5 L Sodium Potassium Chloride Carbon Dioxide Anion Gap BUN Creatinine BUN/Creatinine Ratio Random Glucose Calcium Magnesium Total Bilirubin AST ALT Alkaline Phosphatase Creatine Kinase Total Protein Albumin Urine Color Brown Urine Appearance Slightly cloudy Urine pH 6.5 Ur Specific [place] <=1.005 Urine Protein Negative Urine Glucose (UA) Negative Urine Ketones Negative Urine Blood Negative Urine Nitrate Negative Urine Bilirubin Negative Urine Urobilinogen Normal Ur Leukocyte Esterase Negative Urine RBC None seen Urine WBC None seen Ur Epithelial Cells 0-5 Amorphous Sediment Many - 3+ H Urine Bacteria 2+ H Urine Culture Comments No culture indicated Salicylates Urine Opiates Screen Negative Acetaminophen Barbiturate Screen Negative Ur Phencyclidine Scrn Negative Urine Amphetamine Negative U Benzodiazepines Scrn Negative Urine Cocaine Screen Negative Urine Marijuana (THC) Negative Ethyl Alcohol 04/06/17 04/06/17 04/06/17 19:43 19:43 23:54 WBC Hgb Hct Sodium 127 L Potassium 2.9 L Chloride 91 L Carbon Dioxide 19.9 L Anion Gap 19.0 H BUN 8 Creatinine 0.96 BUN/Creatinine Ratio 8.3 L Random Glucose 120 H Calcium 8.5 Magnesium 1.2 Total Bilirubin 0.3 AST 20 ALT 50 Alkaline Phosphatase 132 Creatine Kinase 271 H Total Protein 7.4 Albumin 4.1 Urine Color Urine Appearance Urine pH Ur Specific [place] Urine Protein Urine Glucose (UA) Urine Ketones Urine Blood Urine Nitrate Urine Bilirubin Urine Urobilinogen Ur Leukocyte Esterase Urine RBC Urine WBC Ur Epithelial Cells Amorphous Sediment Urine Bacteria Urine Culture Comments Salicylates Less than 2.8 L Urine Opiates Screen Acetaminophen Less than 0.2 L Less than 0.2 L Barbiturate Screen Ur Phencyclidine Scrn Urine Amphetamine U Benzodiazepines Scrn Urine Cocaine Screen Urine Marijuana (THC) Ethyl Alcohol Less than 3.0 - Vital Signs Patient's Vital Signs:: I have reviewed the patient's vital signs. Vital Signs: Vital Signs 04/06/17 04/06/17 19:02 20:15 Temperature 37.1 C Pulse Rate 126 H 118 H Respiratory 12 Rate Blood Pressure 146/99 O2 Sat by Pulse 98 Oximetry - CT/Ultrasound CT/Ultrasound Narrative: CT maxillary showed findings concerning for vitreous hemorrhage of the left eye. otherwise normal - Progress/Reassessment Chief Complaint: Drug Overdose Progress Note-Subjective: 04/06/17 22:35 Pt made an attempt to leave, he went out the door followed by security and a nurse. His was in the waiting room and followed him outside. eventually ( 10 minutes) his was able to convince him to come back into the facility. When he arrived he demanded that we get a assistant federal public defender "now". We calmed him down and explained that we would call the assistant federal public defender but it would take a few minutes for him to get here. For a short time the patient continued to demand a assistant federal public defender "now". Clinical Safety Specialist came and he and the patient's [id number] walked with the patient around the parking lot and talked to the patient. The patient did come back into the facility with them. 04/06/17 22:53 Pt left the ED again running through the parking lot. Security and a nurse followed him through the parking lot and the patient jumped into the pond 04/06/17 23:[address] Hector redman 2 without answer, called Judge Olvera and discussed the case, he gave verbal authorization for a 48 hour hold. 04/06/17 23:12 Pt began screeming and trying to kick staff. aerospace engineer officer armament went in the room to try to keep the patient from hurting himself or others. I ordered and we admimstered Haldol 2 mg IM. 04/07/17 00:24 Pt taken out of handcuffs as he has been calm for some time. Security called because pt was attempting to harm himself. Upon walking into the room the patient had blood all over his face, laying there calmly . Upon cleaning patients face we could not find a source of the bleeding. Forcing the patient' s eye open it appeared that the patient lacerated his left eyeball with his fingernail. CT ordered 04/07/17 00:43 pt brought back from CT. I explained that I believe he has lacerated his eye. When asked what he was doing he stated "obviously I was trying to poke my eye out, doc" 04/07/17 02:29 02:[address] Prince at [facility]. He agrees to transfer of the patient for evaluation of his left globe injury 04/07/17 02:[address] Olvera again told him that we are transferring the patient to [facility]. Judge Olvera agrees with transfer and will add the order for the patient to be on 48 hour hold to the [facility] to the hard copy of the hold that will be faxed in the morning. Departure - Departure Clinical Impression: Bipolar II disorder, Borderline personality disorder in adult Orbital rupture Qualifiers: Encounter type: initial encounter Laterality: left Qualified Code(s): S05.32XA - Ocular laceration without prolapse or loss of intraocular tissue, left eye, initial encounter Disposition: [facility] Condition: Fair Referrals: Michael Ross MD [Primary Care Provider] -
[2017-04-06 21:08] LABS: Magnesium 1.2 mg/dL (1.2-2.8)
[2017-04-06] MEDS ORDERED: HALOPERIDOL LACTATE 5 MG/ML VIAL ONE (23:06)
[2017-04-06] MEDS ORDERED: HALOPERIDOL LACTATE 5 MG/ML VIAL IM ONE (23:11)
[2017-04-07] MEDS ORDERED: HALOPERIDOL LACTATE 5 MG/ML VIAL IM ONE (01:52)
[2017-04-07] MEDS ORDERED: CEFTAZIDIME 2 GM in DEXTROSE 5 % IN WATER 100 ML IV ONE ×2 (02:45)
[2017-04-07 03:17] VITALS: BP 165/98
== END 2017-04-07 02:58 | disposition short-term general hospital (02) ==
LOC: ER 18:36
DX: F31.81 Bipolar II disorder (principal); F60.3 Borderline personality disorder; S05.32XA Ocular laceration without prolapse or loss of intraocular tissue, left eye, initial encounter; F90.9 Attention-deficit hyperactivity disorder, unspecified type; F17.200 Nicotine dependence, unspecified, uncomplicated; X78.8XXA Intentional self-harm by other sharp object, initial encounter; Y93.89 Activity, other specified; Y92.230 Patient room in hospital as the place of occurrence of the external cause
CPT/HCPCS: 36415; 70486; 80053; 80307; 81001; 82550; 83735; 85007; 85025; 93005; 94760; 96372; 96374; 99285; G0480; G0481